=== PATIENT | male | born 1975 | race Caucasian/White ===

== ENCOUNTER 2022-01-15 20:57 | Emergency (ER) | payer OTHER, SELFPAY ==
[2022-01-15 21:40] VITALS: BP 164/98; PULSE 113; RESP 22; TEMP 36.8; O2SAT 98
[2022-01-15 22:39] LABS: Basophils Absolute Auto 0.1 K/mm3 (0.0-0.1); Eosinophils Absolute Auto 0.2 K/mm3 (0-0.3); Eosinophils Percent Auto 3.4 % (0-4.4); Hemoglobin 14.5 g/dL (14.0-18.0); Immature Granulocyte Percent A 1.4 % (0-0.5); Lymphocytes Absolute Auto 1.36 K/mm3 (0.9-3.2); Lymphocytes Percent Auto 19.3 % (18.3-44.2); Mean Corpuscular HGB Conc 33.7 g/dl (32-36); Mean Corpuscular Hemoglobin 31.4 pg (26-34); Mean Corpuscular Volume 93.1 fl (80-100); Mean Platelet Volume 9.7 fl (7.4-10.4); Monocytes Absolute Auto 0.7 K/mm3 (0.1-0.6); Monocytes Percent Auto 9.2 % (2.6-8.5); Neutrophils Absolute Auto 4.6 K/mm3 (1.3-6.7); Neutrophils Percent Auto 65.7 % (45.5-73.1); Platelet Count Result 274 k/mm3 (150-375); Red Blood Count 4.62 M/mm3 (4.6-6.20); Red Cell Distribution Width 14.1 % (11.5-14.5); White Blood Count 7.1 K/mm3 (4.5-10.0)
[2022-01-15 22:51] LABS: Ethanol < 10 mg/dL (<10)
[2022-01-15 22:55] LABS: Alanine Aminotransferase 53 U/L (6-50); Alkaline Phosphatase 106 U/L (38-126); Anion Gap 12 mmol/L (8-16); Aspartate Amino Transferase 35 U/L (17-59); Bilirubin,Total 0.7 mg/dL (0.2-1.3); Blood Urea Nitrogen 12 mg/dL (9-20); Calcium 9.1 mg/dL (8.4-10.2); Carbon Dioxide 23 mmol/L (22-30); Chloride 101 mmol/L (98-107); Estimated CRCL calculation 116 ml/min; Estimated Glomerular Filt Rate > 60; Glucose 104 mg/dL (65-110); Lipase 84 U/L (23-300); Sodium 136 mmol/L (137-145)
[2022-01-16 00:25] VITALS: BP 150/114; PULSE 125; RESP 17; TEMP 36.2; O2SAT 97
--- NOTE | 2022-01-16 00:49 | ED.ALCOHOL ---
HPI - Alcohol General Chief Complaint: Alcohol Stated Complaint: etoh, vomiting Time Seen by Provider: 01/16/22 00:23 History of Present Illness HPI narrative: 46-year-old male presents the emergency room for evaluation of nausea shaking and a headache. Patient states that he is a heavy alcohol user, frequently drinks at least 1 pint of hard spirits day for the last 10 days. Patient states that last night and into this Sunday morning he drank over 1/5 of hard alcohol. States his last drink was probably around noon today. Denies any abdominal pain or diarrhea. States that he had multiple episodes of nonbloody nonbilious vomiting. Denies any history of delirium tremens seizure-like activity. Related Data Allergies Allergy/AdvReac Type Severity Reaction Status Date / Time No Known Allergies Allergy Verified 01/15/22 21:46 Review of Systems Review of Systems: CONSTITUTIONAL: Denies fever, chills, or sweats. EYES: Denies visual changes, redness, or discharge. ENT: Denies rhinorrhea, congestion, sore throat, or otalgia. CARDIOVASCULAR: Denies chest pain, palpitations, or edema. RESPIRATORY: Denies cough or dyspnea. GASTROINTESTINAL: Reports nausea and vomiting GENITOURINARY: Denies dysuria or hematuria. SKIN: Denies rash or itching. MUSCULOSKELETAL: Denies back pain, joint pain, or myalgia. NEUROLOGIC: Denies headache, numbness, dizziness, or weakness. PSYCHIATRIC: Denies anxiety or depression. Exam Narrative: GENERAL: Well-appearing, well-nourished, no physical limitations, and in no acute distress. HEAD: Normocephalic, atraumatic. EYES: Conjunctivae normal, PERRLA and EOMI. CHEST: Clear to auscultation. No respiratory distress. No wheezes rales or rhonchi. No tenderness. HEART: Regular rate and rhythm. No murmur heard. Normal peripheral pulses. ABDOMEN: Soft, nontender, obese, normal active bowel sounds. EXTREMITIES: Normal range of motion. No edema. No clubbing or cyanosis SKIN: Warm, dry, no rash. No noted wounds NEURO: No focal deficits. Alert and oriented x3. MAEW. CN's II-XI intact bilaterally, normal gait PSYCH: Cooperative. Normal mood and affect. Course Vital Signs Vital signs: Vital Signs Temperature 36.8 C 01/15/22 21:40 Pulse Rate 113 H 01/15/22 21:40 Respiratory Rate 22 H 01/15/22 21:40 Blood Pressure 164/98 H 01/15/22 21:40 Pulse Oximetry 98 01/15/22 21:40 Oxygen Delivery Room Air 01/15/22 21:40 Temperature 36.2 C L 01/16/22 00:25 Pulse Rate 125 H 01/16/22 00:25 Respiratory Rate 17 01/16/22 00:25 Blood Pressure 150/114 H 01/16/22 00:25 Pulse Oximetry 97 01/16/22 00:25 Oxygen Delivery Room Air 01/15/22 21:40 MDM - Alcohol Lab Data Result diagrams: 01/15/22 22:34 01/15/22 22:34 Labs: Lab Results 01/15/22 01/15/22 01/15/22 Range/Units 22:34 22:34 22:34 WBC 7.1 (4.5-10.0) K/mm3 RBC 4.62 (4.6-6.20) M/mm3 Hgb 14.5 (14.0-18.0) g/dL Hct 43.0 (42.0-52.0) % MCV 93.1 (80-100) fl MCH 31.4 (26-34) pg MCHC 33.7 (32-36) g/dl RDW 14.1 (11.5-14.5) % Plt Count 274 (150-375) k/mm3 MPV 9.7 (7.4-10.4) fl Immature Gran % (Auto) 1.4 H (0-0.5) % Neut % (Auto) 65.7 (45.5-73.1) % Lymph % (Auto) 19.3 (18.3-44.2) % [place] % (Auto) 9.2 H (2.6-8.5) % Eos % (Auto) 3.4 (0-4.4) % Baso % (Auto) 1.0 (0.2-1.2) % Lymph # (Auto) 1.36 (0.9-3.2) K/mm3 [place] # (Auto) 0.7 H (0.1-0.6) K/mm3 Eos # (Auto) 0.2 (0-0.3) K/mm3 Baso # (Auto) 0.1 (0.0-0.1) K/mm3 Abs Immat Gran (auto) 0.10 H (0.00-0.031) K/mm3 Absolute Neuts (auto) 4.6 (1.3-6.7) K/mm3 Absolute Nucleated RBC 0.0 (0.0-0.012) K/mm3 Nucleated RBC % 0.0 (0.0-0.2) % Sodium 136 L (137-145) mmol/L Potassium 4.0 (3.4-5.0) mmol/L Chloride 101 (98-107) mmol/L Carbon Dioxide 23 (22-30) mmol/L Anion Gap 12 (8-16) mmol/L BUN 12 (9-20) mg/dL Creatinine 0.90 (0.7
[2022-01-16] MEDS: SODIUM CHLORIDE 0.9% IV 1,000 ML 999 ML IV CONT (01:27)
[2022-01-16 01:29] LABS: Appearance Urine Clear (Clear); Bilirubin Urine Negative (Negative); Color Urine Yellow (Yellow); Glucose Urine UA Negative (Negative); Ketones Urine Negative (Negative); Leukocyte Esterase Ur Negative LEU/UL (Negative); Nitrate Urine Negative (Negative); Protein Urine 1+ mg/dL (Negative); Specific Grav Ur 1.025 (1.001-1.035); Urobilinogen Urine 0.2 mg/dL (<2.0)
[2022-01-16] MEDS: ONDANSETRON INJ 4 MG/2 ML VIAL IV PUSH (01:29)
[2022-01-16 01:30] LABS: Add Urine Microscopic? YES; Blood Urine Trace-Intact (Negative)
[2022-01-16] MEDS: chlordiazePOXIDE (*CRX) 10 MG CAPSULE PO (01:30)
[2022-01-16] MEDS: THIAMINE HCL 200 MG/2 ML VIAL 100 MG IV PUSH (01:33)
[2022-01-16 01:34] LABS: Bacteria Urine Trace /hpf; Mucus Urine Rare /lpf; Squamous Epithelial Cell Urine Rare /hpf (Few); WBC Urine 0-3 /hpf
[2022-01-16 02:55] VITALS: BP 137/89; PULSE 103; RESP 18; O2SAT 100
== END 2022-01-16 02:57 | disposition home or self-care (01) ==
PROVIDERS: Emergency Medicine; Emergency Provider Nurse Practitioner Family
DX: F10.239 Alcohol dependence with withdrawal, unspecified (principal); Y90.0 Blood alcohol level of less than 20 mg/100 ml
CPT/HCPCS: 36415; 80053; 80307; 81001; 83690; 85025; 96361; 96365; 96375; 99284; A9270; J0131; J2405; J3411; J7030

== ENCOUNTER 2022-02-16 04:58 | Observation (INO) | payer OTHER, SELFPAY ==
[2022-02-16] VITALS (30 sets, daily range): BP systolic 133–204; BP diastolic 11–170; PULSE 56–109; RESP 14–30; TEMP 36.5–37.3; O2SAT 95–99; BMI 37.1
--- NOTE | 2022-02-16 05:21 | ECG_ITS ---
Measurements Intervals [place] Rate: 97 P: 67 MA: 168 QRS: 29 QRSD: 109 T: 41 QT: 359 QTc: 456 Interpretive Statements SINUS RHYTHM DELAYED PRECORDIAL R/S TRANSITION BASELINE ARTIFACT- I, II, III, AVR, AVL, AVF BORDERLINE ECG NO PREVIOUS ECG AVAILABLE FOR COMPARISON Electronically Signed On 02-16-2022 8:09:42 CDT by Iam Akbar D.O.
--- NOTE | 2022-02-16 05:23 | ED.ALCOHOL ---
HPI - Alcohol General Chief Complaint: Alcohol Stated Complaint: Alcohol Withdraw Time Seen by Provider: 02/16/22 05:03 History of Present Illness HPI narrative: This is a 46-year-old male with past medical history of alcohol abuse and alcohol withdrawal, who presents to the emergency department complaining of headaches, tremors and feelings of alcohol withdrawal. He states his last drink was approximately the afternoon of February 15. He describes his headache as pressure-like, diffuse, without loss of vision, weakness or numbness. He states he has been admitted for alcohol withdrawals in the past but not to ICU nor has he had seizures. Related Data Allergies Allergy/AdvReac Type Severity Reaction Status Date / Time No Known Allergies Allergy Verified 01/15/22 21:46 Review of Systems Review of Systems: CONSTITUTIONAL: fever, chills, or sweats. EYES: Denies visual changes, redness, or discharge. ENT: Denies rhinorrhea, congestion, sore throat, or otalgia. CARDIOVASCULAR: palpitations Denies chest pain or edema. RESPIRATORY: Denies cough or dyspnea. GASTROINTESTINAL: nausea Denies abdominal pain, vomiting, or diarrhea. GENITOURINARY: Denies dysuria or hematuria. SKIN: Denies rash or itching. MUSCULOSKELETAL: Denies back pain, joint pain, or myalgia. NEUROLOGIC: headache Denies numbness, dizziness, or weakness. PSYCHIATRIC: anxiety Denies depression. Exam Narrative: GENERAL: Well-developed, well-nourished, appears anxious, diaphoretic and uncomfortable HEAD: Normocephalic, atraumatic. EYES: PERRLA and EOMI. ENT: Nares clear, no rhinorrhea or epistaxis. Mucous membranes moist. Oropharynx without tonsillar hypertrophy exudate or other lesions. NECK: Supple. No adenopathy or masses. No carotid bruits or JVD CHEST: Clear to auscultation. No respiratory distress. No wheezes rales or rhonchi HEART: Tachycardic with regular rhythm. No murmur heard. Normal peripheral pulses. ABDOMEN: Soft, nontender, nondistended, normal active bowel sounds. EXTREMITIES: Normal range of motion. No edema. SKIN: Warm, dry, no rash. NEURO: Tremulous, strength 5/5 in all extremities, sensation intact bilaterally, no noted ataxia, no focal deficits. Alert and oriented x3. PSYCH: Normal mood and affect. Course Course Emergency Course: 05:27 - Nursing staff notes patient's initial CIWA was 25. Will treat with IV dose of phenobarb and plan for admission. 05:50 - CBC unremarkable, chemistries demonstrate gap of 19, I suspect alcoholic ketoacidosis. Ethanol of 22. Reassessed patient he states he feels improved after IV dose of phenobarbital. ECG not concerning for QT prolongation. 07:17 - Repeat CIWA 5. Patient discussed with hospitalist, Dr. Price who accepts admission. Vital Signs Vital signs: Vital Signs Temperature 98.6 F 02/16/22 05:03 Pulse Rate 109 H 02/16/22 05:03 Respiratory Rate 30 H 02/16/22 05:03 Pulse Oximetry 98 02/16/22 05:03 Oxygen Delivery Room Air 02/16/22 05:03 Temperature 98.6 F 02/16/22 05:03 Pulse Rate 97 02/16/22 06:31 Respiratory Rate 18 02/16/22 06:31 Blood Pressure 154/105 H 02/16/22 06:31 Pulse Oximetry 96 02/16/22 06:31 Oxygen Delivery Room Air 02/16/22 05:03 MDM - Alcohol MDM Narrative Medical decision making narrative: Plan: Labs, IV phenobarb, CIWA protocol, thiamine, folate, reassess Differential Diagnosis Differential diagnosis: Likely alcohol withdrawal syndrome and other (Metabolic abnormality, other) Lab Data Result diagrams: 02/16/22 05:25 02/16/22 05:25 Labs: Lab Results 02/16/22 02/16/22 02/16/22 Range/Units 05:25 05:25 05:25 WBC 7.7 (4.5-10.0) K/mm3 RBC 5.06 (4.6-6.20) M/mm3 Hgb 16.0 (14.0-18.0) g/dL Hct 46.4 (42.0-52.0) % MCV 91.7 (80-100) fl MCH 31.6 (26-34) pg MCHC 34.5 (32-36) g/dl RDW 12.8 (11.5-14.5) % Plt Count 252 (150-375) k/mm3 MPV 9.6 (7.4-10.4) fl Immature Gr
[2022-02-16] MEDS: PROCHLORPERAZINE EDISYLATE 10 MG/2 ML VIAL IV PUSH (05:29)
[2022-02-16 05:30] LABS: Basophils Percent Auto 0.5 % (0.2-1.2); Eosinophils Absolute Auto 0.2 K/mm3 (0-0.3); Eosinophils Percent Auto 2.1 % (0-4.4); Hematocrit 46.4 % (42.0-52.0); Immature Granulocyte Absolute 0.03 K/mm3 (0.00-0.031); Immature Granulocyte Percent A 0.4 % (0-0.5); Lymphocytes Absolute Auto 1.62 K/mm3 (0.9-3.2); Lymphocytes Percent Auto 21.1 % (18.3-44.2); Mean Corpuscular HGB Conc 34.5 g/dl (32-36); Mean Corpuscular Hemoglobin 31.6 pg (26-34); Mean Corpuscular Volume 91.7 fl (80-100); Mean Platelet Volume 9.6 fl (7.4-10.4); Monocytes Absolute Auto 0.6 K/mm3 (0.1-0.6); Monocytes Percent Auto 8.3 % (2.6-8.5); Neutrophils Absolute Auto 5.2 K/mm3 (1.3-6.7); Neutrophils Percent Auto 67.6 % (45.5-73.1); Platelet Count Result 252 k/mm3 (150-375); Red Blood Count 5.06 M/mm3 (4.6-6.20); Red Cell Distribution Width 12.8 % (11.5-14.5); White Blood Count 7.7 K/mm3 (4.5-10.0)
[2022-02-16] MEDS: PHENobarbitaL sodium (*CRX) 130 MG/ML VIAL 250 MG IV PUSH (05:33)
[2022-02-16] MEDS: SODIUM CHLORIDE 0.9% IV 1,000 ML 999 ML IV CONT (05:33)
[2022-02-16 05:40] LABS: Ethanol 22 mg/dL (<10)
[2022-02-16 05:41] LABS: Alanine Aminotransferase 65 U/L (6-50); Albumin Level 5.1 g/dL (3.5-5.1); Alkaline Phosphatase 110 U/L (38-126); Anion Gap 19 mmol/L (8-16); Aspartate Amino Transferase 46 U/L (17-59); Bilirubin,Total 0.9 mg/dL (0.2-1.3); Blood Urea Nitrogen 18 mg/dL (9-20); Calcium 9.8 mg/dL (8.4-10.2); Carbon Dioxide 18 mmol/L (22-30); Chloride 101 mmol/L (98-107); Estimated CRCL calculation 96 ml/min; Estimated Glomerular Filt Rate > 60; Glucose 98 mg/dL (65-110); Potassium 3.8 mmol/L (3.4-5.0); Sodium 138 mmol/L (137-145)
[2022-02-16] MEDS: FOLIC ACID 1 MG TABLET PO (06:32)
[2022-02-16 06:47] LABS: Folic Acid 4.4 ng/mL (2.76->20)
--- NOTE | 2022-02-16 08:36 | PC.NURSE ---
This patient, Migueltio Rodriguez, was admitted to IMU Room 204-01. Patient/family oriented to hospital policies and general routines including ID bracelet, bed and alarms, visiting hours, pain management, procedures, bathroom and other care routines, personal items, smoking policy, room service/diet, and visiting hours. Information on how to activate the Rapid Response Team has been discussed. Patient/Family are encouraged to report perceived risks to care and to ask questions if they do not understand what they are told or what they should do.
[2022-02-16] MEDS: THIAMINE HCL 200 MG/2 ML VIAL 100 MG IV PUSH (09:34)
[2022-02-16] MEDS: carvediloL 3.125 MG TABLET PO ×2 (09:51→20:39)
[2022-02-16] MEDS: FAMOTIDINE 20 MG TABLET PO ×2 (09:52→18:31)
[2022-02-16] MEDS: DICYCLOMINE HCL 10 MG CAPSULE 20 MG PO (09:52)
[2022-02-16] MEDS: amLODIPine BESYLATE 5 MG TABLET 10 MG PO (09:52)
[2022-02-16] MEDS: CITALOPRAM HYDROBROMIDE 20 MG TABLET PO (09:52)
[2022-02-16] MEDS: LOSARTAN POTASSIUM 100 MG TABLET PO (09:52)
[2022-02-16 11:50] LABS: Glucose Point of Care 180 mg/dl (65-105)
--- NOTE | 2022-02-16 13:02 | PM.IMHP ---
H&P: HPI History of Present Illness Date/Time: 02/16/22 13:02 Chief Complaint: Alcohol withdrawal Narrative: Date of service: 02/16/22 Miguelito Rodriguez is a 46 year old male with a history of alcohol abuse, hypertension, hyperlipidemia, and borderline diabetes who presented to the emergency department on 02/16/22 with complaints of alcohol withdrawal symptoms. He endorsed shaking, chills, and persistent vomiting. He drank one fifth of gin the night prior, estimating he finished it around 12:00 am and went to bed. He reports this is more than he typically drinks and he wondered if maybe he drank too much and had alcohol poisoning. He states he usually drinks 1 pint of gin daily about 4-5 times per week. He can often go a day without drinking and not have symptoms. He denies any trigger or stressor which caused him to drink more than his typical amount last night. He reports he has tried to quit drinking alcohol in the past, most recently about 1 month ago he was sober for 10 days. He went to [place] [facility] for management of withdrawal symptoms during that time but was never admitted. He states he wishes to quit drinking and the thought of drinking any alcohol at this time makes him feel unwell. He states he would like to obtain some resources for alcohol cessation during this admission and is even open to inpatient vs outpatient rehab options. The patient states at this time he has a mild tremor, mild light sensitivity, sweats, and reports last night having vivid dreams. He denies any visual or auditory disturbances. He felt mildly tachycardic but this has resolved. He has not had any further episodes of emesis since admission. Denies agitation, restlessness, anxiety. No SOB, cough, CP. In the ED, he was mildly tachycardic and tachypneic with additional vital signs stable, CIWA was 25 and he received phenobarbital with improvement. On reassessment his CIWA score was 5. CBC was unremarkable, CMP demonstrated mild anion gap elevation and minimal elevation of AST, alcohol level was 22. He is being admitted for observation to the hospitalist service. Supervising physician for this history and physical is Dr. Nestor Harman. Review of Systems Review of Systems: All systems reviewed & are unremarkable except as noted in HPI and below PMFSH Past Medical History Medical History (Updated 02/16/22 @ 13:33 by Marjorie Burkett PA-C) Alcohol abuse Borderline diabetic Hyperlipidemia Hypertension Surgical History Surgical History (Updated 02/16/22 @ 13:33 by Marjorie Burkett PA-C) History of surgery on lower extremity Unspecified plastic surgery following right leg injury at age 10 Family History Family History (Updated 02/16/22 @ 13:33 by Marjorie Burkett PA-C) Mother Hyperlipemia Heart attack Hypertension Diabetes mellitus Father Hypertension COPD (chronic obstructive pulmonary disease) Social History Social History (Updated 02/16/22 @ 13:37 by Marjorie Burkett PA-C) Social History: Lives at home, independent with ADLs Has a 13 year old daughter. Paid admitting officer caregiver through [facility] for disabled mina. PCP: Rodney Perez NP POA: Le Rodriguez (mother) Code: Full Smoking packs per day: 1 Smoking cigarettes per day: 20.0 Years smoked: 5 Smoking pack-years: 5.00 Smoking status: Former smoker Alcohol intake: current Alcohol use details: Drinks 1 pint of gin/day (4-5x/week) Substance use: current Substance use type: marijuana Spiritual care concerns: No Meds Home Medications and Allergies Home Medications Medication Instructions Recorded Confirmed Type amlodipine 10 mg tablet 10 mg PO DAILY 02/16/22 02/16/22 History carvedilol 3.125 mg tablet 3.125 mg PO BID 02/16/22 02/16/22 History citalopram 20 mg tablet 20 mg PO DAILY 02/16/22 02/16/22 History dicyclomine 10 mg capsule 20 mg PO BID 02/16/22 02/16/22 History famotidine 20 mg tablet 20 mg PO BID 02/16/22 02/16/22 History hydroxyz
[2022-02-16] MEDS: hydrALAZINE HCL 20 MG/ML VIAL 10 MG IV PUSH (13:56)
[2022-02-16] MEDS: chlordiazePOXIDE (*CRX) 25 MG CAPSULE PO ×2 (13:57→18:31)
[2022-02-16 14:37] LABS: Anion Gap 11 mmol/L (8-16); Blood Urea Nitrogen 18 mg/dL (9-20); Calcium 9.4 mg/dL (8.4-10.2); Carbon Dioxide 23 mmol/L (22-30); Chloride 101 mmol/L (98-107); Estimated CRCL calculation 116 ml/min; Estimated Glomerular Filt Rate > 60; Glucose 131 mg/dL (65-110); Potassium 3.5 mmol/L (3.4-5.0); Sodium 135 mmol/L (137-145)
[2022-02-16 18:10] LABS: Glucose Point of Care 168 mg/dl (65-105)
[2022-02-16] MEDS: ACETAMINOPHEN 325 MG TABLET 650 MG PO (19:57)
[2022-02-16] MEDS: hydrOXYzine HCL 25 MG TABLET 100 MG PO (20:39)
[2022-02-16 21:39] LABS: Glucose Point of Care 140 mg/dl (65-105)
[2022-02-17] VITALS: PULSE 68
[2022-02-17] MEDS: chlordiazePOXIDE (*CRX) 25 MG CAPSULE PO ×2 (00:37→06:35)
[2022-02-17] MEDS: LORazepam INJ (*CRX) 2 MG/ML VIAL 1 MG IV PUSH (00:38)
[2022-02-17 02:00] VITALS: PULSE 71
[2022-02-17 04:00] VITALS: BP 140/85; PULSE 68; PULSE 69; RESP 18; TEMP 37.3; O2SAT 97
[2022-02-17 04:49] LABS: Glucose Point of Care 133 mg/dl (65-105)
[2022-02-17 05:00] LABS: Basophils Percent Auto 0.6 % (0.2-1.2); Eosinophils Absolute Auto 0.2 K/mm3 (0-0.3); Eosinophils Percent Auto 4.2 % (0-4.4); Hematocrit 41.4 % (42.0-52.0); Hemoglobin 14.5 g/dL (14.0-18.0); Immature Granulocyte Absolute 0.03 K/mm3 (0.00-0.031); Immature Granulocyte Percent A 0.6 % (0-0.5); Lymphocytes Absolute Auto 1.31 K/mm3 (0.9-3.2); Lymphocytes Percent Auto 24.8 % (18.3-44.2); Mean Corpuscular Hemoglobin 31.7 pg (26-34); Mean Corpuscular Volume 90.4 fl (80-100); Mean Platelet Volume 9.8 fl (7.4-10.4); Monocytes Absolute Auto 0.5 K/mm3 (0.1-0.6); Monocytes Percent Auto 9.3 % (2.6-8.5); Neutrophils Absolute Auto 3.2 K/mm3 (1.3-6.7); Neutrophils Percent Auto 60.5 % (45.5-73.1); Platelet Count Result 224 k/mm3 (150-375); Red Blood Count 4.58 M/mm3 (4.6-6.20); Red Cell Distribution Width 12.5 % (11.5-14.5); White Blood Count 5.3 K/mm3 (4.5-10.0)
[2022-02-17 05:14] LABS: Anion Gap 14 mmol/L (8-16); Blood Urea Nitrogen 17 mg/dL (9-20); Calcium 8.6 mg/dL (8.4-10.2); Carbon Dioxide 27 mmol/L (22-30); Chloride 99 mmol/L (98-107); Estimated CRCL calculation 104 ml/min; Estimated Glomerular Filt Rate > 60; Glucose 111 mg/dL (65-110); Potassium 3.3 mmol/L (3.4-5.0); Sodium 140 mmol/L (137-145)
[2022-02-17 06:00] VITALS: PULSE 78
[2022-02-17 07:42] LABS: Magnesium 1.9 mg/dL (1.6-2.3)
[2022-02-17 07:58] VITALS: BP 139/82; PULSE 73; RESP 16; TEMP 36.7; O2SAT 98
[2022-02-17 08:00] VITALS: PULSE 79
[2022-02-17] MEDS: POTASSIUM CHLORIDE 20 MEQ TABLET 40 MEQ PO (08:06)
[2022-02-17] MEDS: carvediloL 3.125 MG TABLET PO (08:07)
[2022-02-17] MEDS: THIAMINE HCL 100 MG TABLET PO (08:07)
[2022-02-17] MEDS: CITALOPRAM HYDROBROMIDE 20 MG TABLET PO (08:07)
[2022-02-17] MEDS: FAMOTIDINE 20 MG TABLET PO (08:08)
[2022-02-17] MEDS: FOLIC ACID 1 MG TABLET PO (08:08)
[2022-02-17] MEDS: amLODIPine BESYLATE 5 MG TABLET 10 MG PO (08:08)
[2022-02-17] MEDS: LOSARTAN POTASSIUM 100 MG TABLET PO (08:08)
--- NOTE | 2022-02-17 09:23 | PM.DS ---
DS: Admitting Diagnosis Discharge Date 02/17/2022 0923 Admitting Diagnosis Acute alcohol withdrawal Alcohol abuse disorder Hypertension DS: Discharge Diagnosis Discharge Diagnosis (1) Alcohol withdrawal syndrome: Qualifiers: Complication of substance-induced condition: uncomplicated Qualified Code(s): F10.930 - Alcohol use, unspecified with withdrawal, uncomplicated Code(s): F10.939 - Alcohol use, unspecified with withdrawal, unspecified Status: Acute (2) Alcohol abuse: Code(s): F10.10 - Alcohol abuse, uncomplicated Status: Acute (3) Hypertension: Qualifiers: Hypertension type: primary hypertension Qualified Code(s): I10 - Essential (primary) hypertension Code(s): I10 - Essential (primary) hypertension Status: Acute DS: Summary Hospital Course Reason for hospitalization: Tremors Hospital Course: Miguelito Rodriguez is a 46 year old male with alcohol abuse disorder, hypertension, hyperlipidemia, and borderline diabetes who presented to the emergency department on 02/16/22 with complaints of tremors. He endorsed shaking, chills, and persistent vomiting. He drank one fifth of gin the night prior, estimating he finished it around 12:00 am and went to bed. He reports this is more than he typically drinks and he wondered if maybe he drank too much and had alcohol poisoning. He states he usually drinks 1 pint of gin daily about 4-5 times per week. He can often go a day without drinking and not have symptoms. He denies any triggers or stressors which caused him to drink more than his typical amount last night. He reports he has tried to quit drinking alcohol in the past, most recently about 1 month ago he was sober for 10 days. He went to [place] [facility] for management of withdrawal symptoms during that time but was never admitted. He states he wishes to quit drinking and the thought of drinking any alcohol at this time makes him feel unwell. He reported mild tremor, mild light sensitivity, sweats, and vivid dreams the night before.? He denies any visual or auditory disturbances. He was mildly tachycardic but this has resolved. He has not had any further episodes of emesis since admission. Denies agitation, restlessness, anxiety. No SOB, cough, CP. In the ED, he was mildly tachycardic and tachypneic with additional vital signs stable, CIWA was 25 and he received phenobarbital with improvement. On reassessment his CIWA score was 5. CBC was unremarkable, CMP demonstrated mild anion gap elevation and minimal elevation of AST, alcohol level was 22. He was admitted for observation to the hospitalist service. He was treated with Librium Q6 hours and PRN Lorazepam. CIWA was monitored per protocol. He was monitored on telemetry without ectopy. IV thiamine and PO folic acid were started. Home antihypertensives were continued. Care coordination was consulted for alcohol abuse resources. The patient's CIWA score was <8. He reported a desire to quit drinking. He was discharged home in stable condition with PRN gabapentin for withdrawal symptoms. He was counseled on quitting drinking and when to seek further care. Status at Discharge Cognitive/behavioral status at discharge: Alert and oriented x4, pleasant Functional status at discharge: independent ambulation Overall status at discharge: patient is back to baseline Time Spent with Patient Time attestation: Total time spent providing and/or coordinating discharge services: Time spent: Greater than 30 minutes Exam Narrative: General: well-nourished, no acute distress, lying in bed. Neuro: awake, alert and oriented x4, speech clear, no focal neuro deficits noted, mild tremor with palpation both hands HEENT:? normocephalic, pupils equal and round, sclerae anicteric, mucous membranes moist Respiratory: clear to auscultation bilaterally, nonlabored breathing Cardio: regular rate, regular rhythm with S1-S2 Abdomen:? nondistended, normoactive lopez
[2022-02-17] MEDS: ACETAMINOPHEN 325 MG TABLET 650 MG PO (09:36)
== END 2022-02-17 10:30 | disposition home or self-care (01) ==
LOC: ANHED 07:18 → ANHIMU 15:48
PROVIDERS: Physician Assistant; Admitting Provider Chiropractor; Emergency Provider Preventive Medicine Aerospace Medicine; PCP Nurse Practitioner Family; Visit Provider Nurse Practitioner Family
DX: F10.130 Alcohol abuse with withdrawal, uncomplicated (principal); R00.0 Tachycardia, unspecified; R51.9 Headache, unspecified; I10 Essential (primary) hypertension; E78.5 Hyperlipidemia, unspecified; R73.03 Prediabetes
CPT/HCPCS: 36415; 80048; 80053; 80307; 82746; 82948; 83735; 85025; 93005; 96361; 96374; 96375; 99285; A9270; G0378; G0379; J0360; J0780; J2060; J2560; J3411; J7030

== ENCOUNTER 2022-03-26 13:13 | Observation (INO) | payer OTHER, SELFPAY ==
[2022-03-26] VITALS (13 sets, daily range): BP systolic 117–179; BP diastolic 49–113; PULSE 79–133; RESP 12–28; TEMP 36.2–36.3; O2SAT 94–99; BMI 36.9
--- NOTE | 2022-03-26 13:35 | ED.ALCOHOL ---
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 Patient is alcoholic, drinks daily for the last 10 years, lately patient been drinking more than normal. This morning was not able to drink and was not able to keep anything down including his blood pressure medicine.. Patient denies any fever, chills, or abdominal pain Related Data Home Medications Medication Instructions Recorded Confirmed amlodipine 10 mg tablet 10 mg PO DAILY 02/16/22 02/16/22 carvedilol 3.125 mg tablet 3.125 mg PO BID 02/16/22 02/16/22 citalopram 20 mg tablet 20 mg PO DAILY 02/16/22 02/16/22 dicyclomine 10 mg capsule 20 mg PO BID 02/16/22 02/16/22 famotidine 20 mg tablet 20 mg PO BID 02/16/22 02/16/22 hydroxyzine HCl 100 mg PO HS 02/16/22 02/16/22 losartan 100 mg tablet 100 mg PO DAILY 02/16/22 02/16/22 ondansetron 4 mg disintegrating 4 mg PO Q8H PRN Nausea 02/16/22 02/16/22 tablet Allergies Allergy/AdvReac Type Severity Reaction Status Date / Time No Known Allergies Allergy Verified 01/15/22 21:46 Review of Systems Review of Systems: All systems reviewed & are unremarkable except as noted in HPI and below PMFSH Past Medical History Medical History Alcohol abuse Borderline diabetic Hyperlipidemia Hypertension Surgical History Surgical History History of surgery on lower extremity Unspecified plastic surgery following right leg injury at age 10 Family History Family History Mother Hyperlipemia Heart attack Hypertension Diabetes mellitus Father Hypertension COPD (chronic obstructive pulmonary disease) Social History Social History Social History: Lives at home, independent with ADLs Has a 13 year old daughter. 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 PCP: Rodney Perez NP POA: Le Rodriguez (mother) Code: Full Smoking packs per day: 1 Smoking cigarettes per day: 20.0 Years smoked: 5 Smoking pack-years: 5.00 Smoking status: Former smoker Alcohol intake: current Alcohol use details: Drinks 1 pint of gin/day (4-5x/week) Substance use: current Substance use type: marijuana Spiritual care concerns: No Exam Narrative: General appearance: Well-developed, well-nourished, restless, tremors, dry heaves, holding vomiting bag and hands Skin: Normal color Head: Normocephalic, nontraumatic Eyes: Clear conjunctiva ENT: Oropharynx normal, ears normal, nose normal Neck: Supple, nontender Chest and respiratory: Airway patent, no respiratory distress, no accessory muscle use Heart: Regular rate/rhythm Abdomen: Soft, nontender, no organomegaly, quiet bowel sounds Vascular: Normal peripheral pulses, normal capillary refill. Musculoskeletal: Normal range of motion, nontender back Neurologic: Alert and oriented ?3, [employer] is normal as tested, no gross motor deficit Course Course Emergency Course: Alcohol withdrawal secondary to intractable vomiting is my concern. Vomiting could be secondary to gastritis, viral infection Vital Signs Vital signs: Vital Signs Temperature 36.3 C L 03/26/22 13:14 Pulse Rate 133 H 03/26/22 13:14 Respiratory Rate 28 H 03/26/22 13:14 Blood Pressure 179/113 H 03/11
[2022-03-26 14:05] LABS: Basophils Absolute Auto 0.1 K/mm3 (0.0-0.1); Basophils Percent Auto 0.6 % (0.2-1.2); Eosinophils Percent Auto 0.4 % (0-4.4); Hemoglobin 15.5 g/dL (14.0-18.0); Lymphocytes Absolute Auto 1.29 K/mm3 (0.9-3.2); Lymphocytes Percent Auto 13.2 % (18.3-44.2); Mean Corpuscular HGB Conc 35.2 g/dl (32-36); Mean Corpuscular Hemoglobin 31.6 pg (26-34); Mean Corpuscular Volume 89.8 fl (80-100); Mean Platelet Volume 8.8 fl (7.4-10.4); Monocytes Absolute Auto 0.6 K/mm3 (0.1-0.6); Monocytes Percent Auto 5.7 % (2.6-8.5); Neutrophils Absolute Auto 7.7 K/mm3 (1.3-6.7); Neutrophils Percent Auto 79.1 % (45.5-73.1); Platelet Count Result 371 k/mm3 (150-375); Red Cell Distribution Width 12.9 % (11.5-14.5); White Blood Count 9.8 K/mm3 (4.5-10.0)
[2022-03-26] MEDS: LORazepam INJ (*CRX) 2 MG/ML VIAL 1 MG IV PUSH ×2 (14:15→15:12)
[2022-03-26 14:20] LABS: Ethanol < 10 mg/dL (<10)
[2022-03-26 14:23] LABS: Alanine Aminotransferase 72 U/L (6-50); Alkaline Phosphatase 111 U/L (38-126); Anion Gap 17 mmol/L (8-16); Aspartate Amino Transferase 47 U/L (17-59); Bilirubin,Total 0.8 mg/dL (0.2-1.3); Blood Urea Nitrogen 15 mg/dL (9-20); Calcium 9.2 mg/dL (8.4-10.2); Carbon Dioxide 17 mmol/L (22-30); Chloride 104 mmol/L (98-107); Estimated CRCL calculation 105 ml/min; Estimated Glomerular Filt Rate > 60; Glucose 95 mg/dL (65-110); Potassium 3.7 mmol/L (3.4-5.0); Sodium 138 mmol/L (137-145)
[2022-03-26] MEDS: THIAMINE HCL INJ 100 MG, FOLIC ACID INJ 1 MG, MULTIVITAMINS-12 INJ VIAL 1 5 ML, MULTIVI... 1000 MG IV CONT (14:32)
[2022-03-26] MEDS: ONDANSETRON INJ 4 MG/2 ML VIAL 8 MG IV PUSH (14:57)
[2022-03-26 15:20] LABS: Magnesium 1.9 mg/dL (1.6-2.3)
[2022-03-26 15:39] LABS: Prothrombin Time 12.7 Seconds (11.1-14.7)
--- NOTE | 2022-03-26 16:30 | PM.IMHP ---
H&P: HPI History of Present Illness Date/Time: 03/26/22 16:30 Chief Complaint: Tremors, nausea, vomiting. Narrative: This is a 46-year-old male with history of alcohol abuse and hypertension who presented to the ED via private vehicle from home for evaluation of tremors, nausea, and vomiting. He typically drinks a pint of rum most nights of the week however he will occasionally drink more on the weekends. This was one of those weekends and he drank a 5th of rum the last few nights. His last drink was at midnight and he felt fine when he went to bed. At about 930 this morning he awoke from sleep with severe nausea, sweats, and tremors. He had 1 episode of emesis and continued to have dry heaves. He attempted to take a drink to help with his symptoms though was unable to hold anything down. On arrival to the ED his blood pressure was 179/113, pulse 133, respiratory rate 28. He was given lorazepam 2 milligrams IV push x1 in addition to 4 milligrams of ondansetron and his symptoms have improved significantly. He is worried that he is going to continue to have withdrawal symptoms and he is supposed to start back to work tomorrow and as such he is being admitted overnight for close monitoring and detox. At the time have my evaluation he is feeling much better is though is a bit tremulous. He denies sweats, hallucinations, and significant anxiety at this time. No history of alcohol withdrawal seizures. Review of Systems Review of Systems: Twelve systems were reviewed. He has had a bit of a headache and sinus congestion which he attributes to seasonal allergies. No fever, chills, or sweats. No chest pain shortness a breath. No abdominal pain or epigastric pain. Nausea has significantly improved. He does suffer from GERD which is typically well controlled on his omeprazole. Except as documented, all other systems were reviewed and are negative. [facility] Past Medical History Medical History (Updated 03/26/22 @ 21:09 by Mellissa Addison PA-C) Alcohol abuse Borderline diabetic Eczema Gastroesophageal reflux disease Hyperlipidemia Hypertension Kidney stones Surgical History Surgical History (Updated 03/26/22 @ 21:09 by Mellissa Addison PA-C) History of appendectomy History of surgery on lower extremity Unspecified plastic surgery following right leg injury at age 10 Family History Family History Mother Hyperlipemia Heart attack Hypertension Diabetes mellitus Father Hypertension COPD (chronic obstructive pulmonary disease) Social History Social History (Updated 03/26/22 @ 21:10 by Mellissa Addison PA-C) Social History: Lives at home, independent with ADLs. Has a 13 year old daughter. 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 PCP: Rodney Perez NP POA: Le Rodriguez, mother. Code status: Full Code. Smoking packs per day: 1 Smoking cigarettes per day: 20.0 Years smoked: 5 Smoking pack-years: 5.00 Smoking status: Former smoker Alcohol intake: current Alcohol use details: Drinks 1 pint of gin or rum a day, up to a 5th on the weekends. Substance use: current Substance use type: marijuana Last use: 03/23/22 Spiritual care concerns: No Meds Home Medications and Allergies Home Medications Medication Instructions Recorded Confirmed Type amlodipine 10 mg tablet 10 mg PO DAILY 02/16/22 03/26/22 History citalopram 20 mg tablet 20 mg PO DAILY 02/16/22 03/26/22 History dicyclomine 10 mg capsule 20 mg PO BID 02/16/22 03/26/22 History famotidine 20 mg tablet 20 mg PO BID PRN Heartburn 02/16/22 03/26/22 History hydroxyzine HCl 50 mg PO HS 02/16/22 03/26/22 History losartan 100 mg tablet 100 mg PO DAILY 02/16/22 03/26/22 History ondansetron 4 mg disintegrating 4 mg PO Q8H PRN Nausea 02/16/22 03/26/22 History tablet gabapentin 100 mg capsule 100 mg PO TID PRN alcohol 02/17/22 03/26/22 Rx withdrawal #12 caps
[2022-03-26] MEDS: SODIUM CHLORIDE 0.9% IV 1,000 ML 150 ML IV CONT (17:50)
--- NOTE | 2022-03-26 18:03 | ADMGEN ---
This patient, Miguelito Rodriguez, was admitted to 3 [facility] Surg Room 322-01. Patient/family oriented to hospital policies and general routines including ID bracelet, bed and alarms, visiting hours, pain management, procedures, bathroom and other care routines, personal items, smoking policy, room service/diet, and visiting hours. Information on how to activate the Rapid Response Team has been discussed. Patient/Family are encouraged to report perceived risks to care and to ask questions if they do not understand what they are told or what they should do.
[2022-03-26] MEDS: LORazepam INJ (*CRX) 2 MG/ML VIAL IV PUSH (19:50)
[2022-03-26] MEDS: chlordiazePOXIDE (*CRX) 10 MG CAPSULE PO (22:33)
[2022-03-26] MEDS: hydrOXYzine HCL 25 MG TABLET 50 MG PO (22:33)
[2022-03-27] VITALS (11 sets, daily range): BP systolic 132–148; BP diastolic 84–93; PULSE 62–90; RESP 14–18; TEMP 36.4–37; O2SAT 94–98
[2022-03-27] MEDS: LORazepam INJ (*CRX) 2 MG/ML VIAL 1 MG IV PUSH ×2 (00:15→06:11)
[2022-03-27] MEDS: SODIUM CHLORIDE 0.9% IV 1,000 ML 150 ML IV CONT ×4 (00:18→22:29)
[2022-03-27] MEDS: chlordiazePOXIDE (*CRX) 10 MG CAPSULE PO (06:11)
[2022-03-27 06:39] LABS: Hematocrit 37.2 % (42.0-52.0); Mean Corpuscular HGB Conc 34.9 g/dl (32-36); Mean Corpuscular Hemoglobin 31.3 pg (26-34); Mean Corpuscular Volume 89.6 fl (80-100); Platelet Count Result 282 k/mm3 (150-375); Red Blood Count 4.15 M/mm3 (4.6-6.20); Red Cell Distribution Width 12.9 % (11.5-14.5); White Blood Count 6.2 K/mm3 (4.5-10.0)
[2022-03-27 06:56] LABS: Alanine Aminotransferase 48 U/L (6-50); Albumin Level 3.9 g/dL (3.5-5.1); Alkaline Phosphatase 84 U/L (38-126); Anion Gap 11 mmol/L (8-16); Aspartate Amino Transferase 30 U/L (17-59); Bilirubin,Total 0.9 mg/dL (0.2-1.3); Blood Urea Nitrogen 13 mg/dL (9-20); Calcium 8.1 mg/dL (8.4-10.2); Carbon Dioxide 23 mmol/L (22-30); Chloride 104 mmol/L (98-107); Estimated CRCL calculation 108 ml/min; Estimated Glomerular Filt Rate > 60; Glucose 115 mg/dL (65-110); Magnesium 2.1 mg/dL (1.6-2.3); Potassium 3.5 mmol/L (3.4-5.0); Sodium 138 mmol/L (137-145)
[2022-03-27] MEDS: PANTOPRAZOLE SODIUM IV 40 MG VIAL IV PUSH (08:46)
[2022-03-27] MEDS: FOLIC ACID 1 MG TABLET PO (08:47)
[2022-03-27] MEDS: DICYCLOMINE HCL 10 MG CAPSULE 20 MG PO ×2 (08:47→16:49)
[2022-03-27] MEDS: CITALOPRAM HYDROBROMIDE 20 MG TABLET PO (08:47)
[2022-03-27] MEDS: amLODIPine BESYLATE 5 MG TABLET 10 MG PO (08:47)
[2022-03-27] MEDS: LOSARTAN POTASSIUM 100 MG TABLET PO (08:47)
[2022-03-27] MEDS: THIAMINE HCL 100 MG TABLET PO (08:47)
--- NOTE | 2022-03-27 14:28 | PM.IMPN ---
Progress Note: A&P Assessment and Plan (1) Alcohol withdrawal syndrome: Code(s): F10.939 - Alcohol use, unspecified with withdrawal, unspecified Status: Acute Assessment and Plan: CIWA score was 9-12 today, will increase librium and be more aggressive with prn ativan, discussed with nursing (2) Alcohol abuse: Code(s): F10.10 - Alcohol abuse, uncomplicated Status: Acute Assessment and Plan: continue MVI + thiamine (3) Hypertension: Qualifiers: Hypertension type: primary hypertension Qualified Code(s): I10 - Essential (primary) hypertension Code(s): I10 - Essential (primary) hypertension Status: Acute Assessment and Plan: will add clonidine (4) Gastroesophageal reflux disease: Code(s): K21.9 - Gastro-esophageal reflux disease without esophagitis Status: Acute Assessment and Plan: continue famotidine prn, PPI daily (5) Anxiety: Code(s): F41.9 - Anxiety disorder, unspecified Status: Acute Assessment and Plan: celexa Plan DVT prophylaxis with SCDs GI prophylaxis with PPI Code status full code Subjective Date/time seen: 03/27/22 14:28 Interval history: No overnight events noted. No chest pain or shortness of breath. No nausea, vomiting or diarrhea. No fevers or chills. He is c/o tremors, CARBONE and some nausea, much improved from yesterday. Review of Systems Review of Systems: 12 point review of systems was assessed and was negative except as noted in the HPI Exam Narrative: General: No acute distress, alert and oriented per baseline, somewhat tremulous HEENT: Atraumatic, normocephalic, mucous membranes moist CV: Regular rate and rhythm, S1, S2 Lungs: Clear to auscultation bilaterally, no rales or crackles noted, no wheezes, good air entry Abdomen: Soft, nontender, nondistended Extremities: Normal to inspection Skin: No rashes noted, no lesions or wounds seen Psych: Anxious, dysthymic Objective Data Vital Signs Vital Signs: Vital Signs - 24 hr 03/26/22 15:17 03/26/22 15:16 03/26/22 15:31 Temperature Pulse Rate 99 99 99 Pulse Rate [Left Radial] Respiratory Rate 18 15 12 Blood Pressure 132/94 H 132/94 H 152/91 H Pulse Oximetry 98 99 94 03/26/22 16:01 03/26/22 17:25 03/26/22 20:00 Temperature Pulse Rate 97 98 94 Pulse Rate [Left Radial] Respiratory Rate 18 18 Blood Pressure 135/90 149/49 H Pulse Oximetry 96 99 03/27/22 00:00 03/27/22 04:00 03/27/22 00:00 Temperature Pulse Rate 68 Pulse Rate [Left Radial] 72 71 Respiratory Rate Blood Pressure Pulse Oximetry 03/27/22 04:00 03/26/22 22:00 03/27/22 04:00 Temperature 97.1 F L 97.7 F Pulse Rate 71 79 73 Pulse Rate [Left Radial] Respiratory Rate 16 14 Blood Pressure 145/87 H 148/91 H Pulse Oximetry 94 96 03/27/22 08:36 03/27/22 08:37 03/27/22 08:00 Temperature 98.4 F 98.4 F Pulse Rate 89 89 82 Pulse Rate [Left Radial] Respiratory Rate 16 16 Blood Pressure 132/84 132/84 Pulse Oximetry 94 94 03/27/22 12:22 03/27/22 12:00 03/27/22 08:47 Temperature 98.6 F Pulse Rate 86 86 Pulse Rate [Left Radial] 90 Respiratory Rate 16 Blood Pressure 148/93 H Pulse Oximetry 97 03/27/22 12:00 Temperature Pulse Rate Pulse Rate [Left Radial] 86 Respiratory Rate Blood Pressure Pulse Oximetry Intake/Output Intake/Output: Intake & Output 03/24/22 03/25/22 03/26/22 03/27/22 23:59 23:59 23:59 23:59 Intake Total 1113.2 3080 Balance 1113.2 3080 Meds/Results Medications: Active Medications Generic Name Dose Route Start Last Admin Trade Name Freq PRN Reason Stop Dose Admin Amlodipine Besylate 10 mg 03/27/22 09:00 03/27/22 08:47 Amlodipine Besylate 5 Mg Tablet PO 10 mg DAILY GREY Administration Chlordiazepoxide HCl 10 mg 03/26/22 22:00 03/27/22 06:11 Chlordiazepoxide (*Crx) 10 Mg Capsule PO 10 mg Q8H GREY A
[2022-03-27] MEDS: LORazepam INJ (*CRX) 2 MG/ML VIAL IV PUSH ×2 (15:34→21:27)
[2022-03-27] MEDS: chlordiazePOXIDE (*CRX) 25 MG CAPSULE PO ×2 (15:34→23:00)
[2022-03-27] MEDS: cloNIDine HCL 0.1 MG TABLET PO ×2 (15:50→21:16)
[2022-03-27] MEDS: KETOROLAC 15 MG/ML VIAL (*BKC) IV PUSH (16:49)
[2022-03-27] MEDS: ACETAMINOPHEN 325 MG TABLET 650 MG PO (19:57)
[2022-03-27] MEDS: traZODone HCL 50 MG TABLET 100 MG PO (21:16)
[2022-03-27] MEDS: hydrOXYzine HCL 25 MG TABLET 50 MG PO (21:16)
[2022-03-28] VITALS (7 sets, daily range): BP systolic 120–148; BP diastolic 86–92; PULSE 59–80; RESP 14–18; TEMP 36.2–36.4; O2SAT 96–99
[2022-03-28] MEDS: SODIUM CHLORIDE 0.9% IV 1,000 ML 150 ML IV CONT (05:34)
[2022-03-28] MEDS: chlordiazePOXIDE (*CRX) 25 MG CAPSULE PO (06:52)
[2022-03-28] MEDS: ACETAMINOPHEN 325 MG TABLET 650 MG PO (06:57)
[2022-03-28] MEDS: CITALOPRAM HYDROBROMIDE 20 MG TABLET PO (08:09)
[2022-03-28] MEDS: LOSARTAN POTASSIUM 100 MG TABLET PO (08:09)
[2022-03-28] MEDS: amLODIPine BESYLATE 5 MG TABLET 10 MG PO (08:10)
[2022-03-28] MEDS: THIAMINE HCL 100 MG TABLET PO (08:11)
[2022-03-28] MEDS: FOLIC ACID 1 MG TABLET PO (08:11)
[2022-03-28] MEDS: DICYCLOMINE HCL 10 MG CAPSULE 20 MG PO (08:12)
[2022-03-28] MEDS: cloNIDine HCL 0.1 MG TABLET PO (08:25)
[2022-03-28] MEDS: PANTOPRAZOLE SODIUM IV 40 MG VIAL IV PUSH (08:25)
--- NOTE | 2022-03-28 13:33 | PM.DS ---
DS: Admitting Diagnosis Discharge Date March 28, 2022 Admitting Diagnosis Alcohol withdrawal DS: Discharge Diagnosis Discharge Diagnosis (1) Alcohol withdrawal syndrome: Code(s): F10.939 - Alcohol use, unspecified with withdrawal, unspecified Status: Acute Assessment and Plan: CIWA score down to 1 on the lower dose of Librium (2) Alcohol abuse: Code(s): F10.10 - Alcohol abuse, uncomplicated Status: Acute Assessment and Plan: continue MVI + thiamine (3) Hypertension: Qualifiers: Hypertension type: primary hypertension Qualified Code(s): I10 - Essential (primary) hypertension Code(s): I10 - Essential (primary) hypertension Status: Acute Assessment and Plan: will add clonidine (4) Gastroesophageal reflux disease: Code(s): K21.9 - Gastro-esophageal reflux disease without esophagitis Status: Acute Assessment and Plan: continue famotidine prn, PPI daily (5) Anxiety: Code(s): F41.9 - Anxiety disorder, unspecified Status: Acute Assessment and Plan: celexa Plan DVT prophylaxis with SCDs GI prophylaxis with PPI Code status full code DS: Summary Hospital Course Hospital Course: 46-year-old male with history of alcohol abuse and hypertension who presented to the ED via private vehicle from home for evaluation of tremors, nausea, and vomiting. He typically drinks a pint of rum most nights of the week however he will occasionally drink more on the weekends. This was one of those weekends and he drank a 5th of rum the last few nights. His last drink was at midnight and he felt fine when he went to bed.? At about 930 this morning he awoke from sleep with severe nausea, sweats, and tremors. He had 1 episode of emesis and continued to have dry heaves. He attempted to take a drink to help with his symptoms though was unable to hold anything down. On arrival to the ED his blood pressure was 179/113, pulse 133, respiratory rate 28. He was given lorazepam 2 milligrams IV push x1 in addition to 4 milligrams of ondansetron and his symptoms have improved significantly. He is worried that he is going to continue to have withdrawal symptoms and he is supposed to start back to work tomorrow and as such he is being admitted overnight for close monitoring and detox. At the time have my evaluation he is feeling much better is though is a bit tremulous. He denies sweats, hallucinations, and significant anxiety at this time.? No history of alcohol withdrawal seizures. Patient was weaned off of a CIWA of 19 down to 1 with Librium starting at 25 mg q.6, decreased to 10 mg q.6 with Ativan as needed. All symptoms resolved and he was discharged in good condition close outpatient follow-up with a script for Librium 10 mg to take as needed. Extensive counseling was given regarding alcohol cessation, patient appears to be in the pre contemplative stage. Time Spent with Patient Time attestation: Total time spent providing and/or coordinating discharge services: Exam Narrative: General: No acute distress, alert and oriented per baseline, somewhat tremulous HEENT: Atraumatic, normocephalic, mucous membranes moist CV: Regular rate and rhythm, S1, S2 Lungs: Clear to auscultation bilaterally, no rales or crackles noted, no wheezes, good air entry Abdomen: Soft, nontender, nondistended Extremities: Normal to inspection Skin: No rashes noted, no lesions or wounds seen Psych: Anxious, dysthymic Discharge Plan Discharge Attending physician on discharge: Amarilis Felder Discharging Clinician: Amarilis Felder Patient Disposition: Home, Self-Care Activity: as tolerated Diet: as tolerated Patient Instructions: Abuse of Alcohol (DC) Stand Alone Forms: General Discharge Information Follow-up/Referrals: Chris,EZEQUIEL Stevens [Primary Care Provider] - Discharge Medications: New clonidine HCl 0.1 mg Tablet 0.1 m
== END 2022-03-28 14:35 | disposition home or self-care (01) ==
LOC: ANHED 16:05 → ANH3MEDSUR 03-28 03:14
PROVIDERS: Physician Assistant; Admitting Provider Student in an Organized Health Care Education/Training Program; Emergency Provider Emergency Medicine; PCP Nurse Practitioner Family; Visit Provider Student in an Organized Health Care Education/Training Program
DX: F10.139 Alcohol abuse with withdrawal, unspecified (principal); Y90.0 Blood alcohol level of less than 20 mg/100 ml; I10 Essential (primary) hypertension; E78.5 Hyperlipidemia, unspecified; F12.90 Cannabis use, unspecified, uncomplicated; K21.9 Gastro-esophageal reflux disease without esophagitis; Z87.891 Personal history of nicotine dependence; Z79.899 Other long term (current) drug therapy
CPT/HCPCS: 36415; 80053; 80307; 83735; 84443; 85025; 85027; 85610; 96361; 96365; 96366; 96374; 96375; 96376; 99285; A9270; C9113; G0378; G0379; J0131; J1885; J2060; J2405; J3411; J3475; J7030

== ENCOUNTER 2022-04-23 10:55 | Emergency (ER) | payer OTHER, SELFPAY ==
[2022-04-23] VITALS (16 sets, daily range): BP systolic 153–165; BP diastolic 103–139; PULSE 96–146; RESP 10–30; O2SAT 93–100
--- NOTE | 2022-04-23 11:13 | ED.ALCOHOL ---
HPI - Alcohol General Chief Complaint: Alcohol Stated Complaint: ETOH withdrawal Time Seen by Provider: 04/23/22 11:08 History of Present Illness HPI narrative: 46-year-old male presents the emergency room for evaluation of nausea and vomiting, diaphoresis and shaking secondary to alcohol withdrawal. Patient states his last drink was yesterday. Admits to being an alcoholic, and has been drinking excessively recently. States yesterday was unable to keep any fluids or solid foods down including his blood pressure medicine. Related Data Home Medications Medication Instructions Recorded Confirmed amlodipine 10 mg tablet 10 mg PO DAILY 02/16/22 03/26/22 citalopram 20 mg tablet 20 mg PO DAILY 02/16/22 03/26/22 dicyclomine 10 mg capsule 20 mg PO BID 02/16/22 03/26/22 famotidine 20 mg tablet 20 mg PO BID PRN Heartburn 02/16/22 03/26/22 hydroxyzine HCl 50 mg PO HS 02/16/22 03/26/22 losartan 100 mg tablet 100 mg PO DAILY 02/16/22 03/26/22 ondansetron 4 mg disintegrating 4 mg PO Q8H PRN Nausea 02/16/22 03/26/22 tablet Allergies Allergy/AdvReac Type Severity Reaction Status Date / Time No Known Allergies Allergy Verified 03/26/22 18:12 Review of Systems Review of Systems: CONSTITUTIONAL: Reports diaphoresis EYES: Denies visual changes, redness, or discharge. ENT: Denies rhinorrhea, congestion, sore throat, or otalgia. CARDIOVASCULAR: Denies chest pain, palpitations, or edema. RESPIRATORY: Denies cough or dyspnea. GASTROINTESTINAL: Reports nausea vomiting GENITOURINARY: Denies dysuria or hematuria. SKIN: Denies rash or itching. MUSCULOSKELETAL: Denies back pain, joint pain, or myalgia. NEUROLOGIC: Reports tremors PSYCHIATRIC: Denies anxiety or depression. [facility] Past Medical History Medical History Alcohol abuse Borderline diabetic Eczema Gastroesophageal reflux disease Hyperlipidemia Hypertension Kidney stones Surgical History Surgical History History of appendectomy History of surgery on lower extremity Unspecified plastic surgery following right leg injury at age 10 Family History Family History Mother Hyperlipemia Heart attack Hypertension Diabetes mellitus Father Hypertension COPD (chronic obstructive pulmonary disease) Social History Social History Social History: Lives at home, independent with ADLs. Has a 13 year old daughter. 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 PCP: Rodney Perez NP POA: Le Rodriguez, mother. Code status: Full Code. Smoking packs per day: 1 Smoking cigarettes per day: 20.0 Years smoked: 5 Smoking pack-years: 5.00 Smoking status: Former smoker Alcohol intake: current Alcohol use details: Drinks 1 pint of gin or rum a day, up to a 5th on the weekends. Substance use: current Substance use type: marijuana Last use: 03/23/22 Spiritual care concerns: No Exam Narrative: GENERAL: Well-appearing, well-nourished, no physical limitations, and in no acute distress. HEAD: Normocephalic, atraumatic. EYES: Conjunctivae normal, PERRLA and EOMI. ENT: External nose normal, Nares clear, no rhinorrhea or epistaxis. Mucous membranes moist. Oropharynx without tonsillar hypertrophy exudate or other lesions. External ears normal, bilateral TMs normal bilaterally NECK: Supple. No meningeal signs. No adenopathy or masses. No carotid bruits or JVD CHEST: Clear to auscultation. No respiratory distress. No wheezes rales or rhonchi. No tenderness. HEART: Regular rate and rhythm. No murmur heard. Normal peripheral pulses. ABDOMEN: Soft, nontender, nondistended, normal active bowel sounds. BACK: No CVA tenderness EXTREMITIES: Normal range of motion. No edema. No clubbing or cyanosis SKIN: Warm, dry, no rash. No noted w
[2022-04-23] MEDS: ONDANSETRON INJ 4 MG/2 ML VIAL IV PUSH (11:21)
[2022-04-23] MEDS: SODIUM CHLORIDE 0.9% IV 1,000 ML 999 ML IV CONT ×2 (11:21→12:57)
[2022-04-23] MEDS: LORazepam INJ (*CRX) 2 MG/ML VIAL IV PUSH (11:21)
[2022-04-23 11:31] LABS: Basophils Absolute Auto 0.1 K/mm3 (0.0-0.1); Eosinophils Absolute Auto 0.1 K/mm3 (0-0.3); Eosinophils Percent Auto 1.5 % (0-4.4); Hematocrit 44.8 % (42.0-52.0); Hemoglobin 15.8 g/dL (14.0-18.0); Immature Granulocyte Percent A 1.5 % (0-0.5); Lymphocytes Absolute Auto 2.32 K/mm3 (0.9-3.2); Mean Corpuscular HGB Conc 35.3 g/dl (32-36); Mean Corpuscular Hemoglobin 31.1 pg (26-34); Mean Corpuscular Volume 88.2 fl (80-100); Monocytes Absolute Auto 0.4 K/mm3 (0.1-0.6); Monocytes Percent Auto 6.3 % (2.6-8.5); Neutrophils Absolute Auto 3.8 K/mm3 (1.3-6.7); Neutrophils Percent Auto 55.7 % (45.5-73.1); Platelet Count Result 279 k/mm3 (150-375); Red Blood Count 5.08 M/mm3 (4.6-6.20); Red Cell Distribution Width 13.4 % (11.5-14.5); White Blood Count 6.8 K/mm3 (4.5-10.0)
[2022-04-23 11:44] LABS: Alanine Aminotransferase 145 U/L (6-50); Albumin Level 5.4 g/dL (3.5-5.1); Alkaline Phosphatase 116 U/L (38-126); Anion Gap 25 mmol/L (8-16); Aspartate Amino Transferase 104 U/L (17-59); Bilirubin,Total 0.8 mg/dL (0.2-1.3); Blood Urea Nitrogen 15 mg/dL (9-20); Calcium 8.9 mg/dL (8.4-10.2); Carbon Dioxide 20 mmol/L (22-30); Chloride 100 mmol/L (98-107); Estimated CRCL calculation 107 ml/min; Estimated Glomerular Filt Rate > 60; Glucose 98 mg/dL (65-110); Lipase 118 U/L (23-300); Potassium 3.5 mmol/L (3.4-5.0); Sodium 145 mmol/L (137-145)
[2022-04-23 11:53] LABS: Ethanol 183 mg/dL (<10)
[2022-04-23] MEDS: hydrALAZINE HCL 20 MG/ML VIAL 10 MG IV PUSH (12:57)
== END 2022-04-23 14:00 | disposition home or self-care (01) ==
PROVIDERS: Emergency Provider Nurse Practitioner Family; PCP Nurse Practitioner Family
DX: F10.239 Alcohol dependence with withdrawal, unspecified (principal); Y90.6 Blood alcohol level of 120-199 mg/100 ml; R73.03 Prediabetes; K21.9 Gastro-esophageal reflux disease without esophagitis; E78.5 Hyperlipidemia, unspecified; I10 Essential (primary) hypertension; Z87.442 Personal history of urinary calculi; Z87.891 Personal history of nicotine dependence
CPT/HCPCS: 36415; 80053; 80307; 83690; 85025; 96361; 96365; 96375; 99284; J0131; J0360; J2060; J2405; J7030

== ENCOUNTER 2022-06-30 07:27 | Inpatient (IN) | payer OTHER, SELFPAY ==
[2022-06-30] VITALS (77 sets, daily range): BP systolic 132–200; BP diastolic 87–155; PULSE 87–126; RESP 8–24; TEMP 36.3–36.8; O2SAT 91–98; BMI 36.7
--- NOTE | ~2022-06-30 | US_ITS ---
EXAMINATION: US abdomen limited DATE: 07/01/2022 09:03 INDICATION: Abnormal liver function tests. TECHNIQUE: Multiple grayscale and Doppler ultrasound images of the abdomen were obtained. COMPARISON: None FINDINGS: The visualized portions of the head and body of the pancreas are normal. There is diffuse h epatic steatosis. There is normal flow in main portal vein. The gallbladder is normal in size. No gal lstones or gallbladder wall thickening. There is no sonographic Mcnamara sign. The common duct is mainor l and measures 5 mm . IMPRESSION: 1. Diffuse hepatic steatosis. Reviewed, dictated and finalized at location A. RTRAIN CONTROL SYSTEMS ENGINEER
--- NOTE | 2022-06-30 07:45 | ECG_ITS ---
Measurements Intervals [place] Rate: 105 P: 56 KS: 189 QRS: 41 QRSD: 125 T: 38 QT: 356 QTc: 471 Interpretive Statements SINUS TACHYCARDIA POOR R WAVE PROGRESSION, ANTERIOR LEADS MINIMAL Q WAVES- INFERIOR LEADS BORDERLINE T WAVE ABNORMALITY- ANTERIOR LEADS BASELINE ARTIFACT- I, III, AVL, AVF BORDERLINE ECG COMPARED TO ECG 02/16/2022 05:47:32 SINUS TACHYCARDIA NOW PRESENT Electronically Signed On 06-30-2022 8:58:03 STAGE ELECTRICIAN by Iam Akbar D.O.
--- NOTE | 2022-06-30 08:27 | ED.ALCOHOL ---
HPI - Alcohol General Chief Complaint: Alcohol Stated Complaint: ALCOHOL WITHDRAWALS ?SZ Time Seen by Provider: 06/30/22 07:36 History of Present Illness HPI narrative: Patient is a 47-year-old male with a history of alcohol use disorder, hypertension presenting with alcohol withdrawal. Patient states that he decided to take a break from drinking approximately 48 hours ago. States that he had consumed approximately 2 fifths of liquor the day prior to deciding to take a break. States that this morning he woke up and felt extremely tremulous and anxious. States that he went to the bathroom and then his found him on the toilet with his eyes rolling in the back of his head. He is unsure if he had a small seizure. He denies prior withdrawal seizures. Currently reports headache, tremors, nausea. States he feels extremely thirsty. He denies fevers, chest pain, shortness of breath, cough, abdominal pain. Smokes marijuana, denies other drugs or tobacco. Related Data Home Medications Medication Instructions Recorded Confirmed amlodipine 10 mg tablet 10 mg PO DAILY 02/16/22 06/30/22 citalopram 20 mg tablet 20 mg PO DAILY 02/16/22 06/30/22 famotidine 20 mg tablet 20 mg PO BID PRN Heartburn 02/16/22 06/30/22 hydroxyzine HCl 50 mg PO HS 02/16/22 06/30/22 losartan 100 mg tablet 100 mg PO DAILY 02/16/22 06/30/22 ondansetron 4 mg disintegrating 4 mg PO Q6H PRN Nausea 02/16/22 06/30/22 tablet Allergies Allergy/AdvReac Type Severity Reaction Status Date / Time No Known Allergies Allergy Verified 06/30/22 17:55 Review of Systems Review of Systems: All systems reviewed & are unremarkable except as noted in HPI and below PMFSH Past Medical History Medical History Alcohol abuse Borderline diabetic Eczema Gastroesophageal reflux disease Hyperlipidemia Hypertension Kidney stones Surgical History Surgical History History of appendectomy History of surgery on lower extremity Unspecified plastic surgery following right leg injury at age 10 Family History Family History Mother Hyperlipemia Heart attack Hypertension Diabetes mellitus Father Hypertension COPD (chronic obstructive pulmonary disease) Social History Social History (Updated 06/30/22 @ 21:31 by Mellissa Addison PA-C) Social History: Lives at home, independent with ADLs. Has a 13 year old daughter. 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 PCP: Rodney Perez NP POA: Le Rodriguez, mother. Code status: Full Code. Smoking packs per day: 1 Smoking cigarettes per day: 20.0 Years smoked: 5 Smoking pack-years: 5.00 Smoking status: Never smoker Alcohol intake: current Alcohol use details: Drinks 1 pint of gin or rum a day, up to a 5th on the weekends. Substance use: current Substance use type: marijuana Other substance usage details: 1-2 fifths a day Lack of Transportation: No Lack of Food: Never True Current Housing: I Have Housing Concerned About Future Housing: No Difficulty Paying Gas/Electric Bills: No Difficulty Paying for Meds: No Currently Unemployed: No Education: High School Diploma/GED Difficulty w/ Childcare or Family Care: No Spiritual care concerns: No Exam Narrative: GENERAL: Tremulous, anxious appearing male HEAD: Normocephalic, atraumatic. EYES: PERRLA and EOMI. ENT: Nares clear, no rhinorrhea or epistaxis. Mucous membranes dry, + tongue fasciculations NECK: Supple. CHEST: Clear to auscultation. No respiratory distress. HEART: Tachycardic, regular rhythm. No murmur heard. Normal peripheral pulses. ABDOMEN: Soft, nontender, nondistended, normal active bowel sounds. EXTREMITIES: Normal range of motion. No edema. Very tremulous SKIN: Warm, dry, no rash. NEURO: No focal deficits. Al
[2022-06-30] MEDS: SODIUM CHLORIDE 0.9% IV 1,000 ML 999 ML IV CONT ×2 (08:34→09:39)
[2022-06-30] MEDS: ONDANSETRON INJ 4 MG/2 ML VIAL IV PUSH ×2 (08:35→20:00)
[2022-06-30] MEDS: LORazepam INJ (*CRX) 2 MG/ML VIAL IV PUSH ×2 (08:35→13:55)
[2022-06-30 08:43] LABS: Basophils Absolute Auto 0.1 K/mm3 (0.0-0.1); Basophils Percent Auto 1.1 % (0.2-1.2); Eosinophils Absolute Auto 0.1 K/mm3 (0-0.3); Eosinophils Percent Auto 1.1 % (0-4.4); Hematocrit 45.4 % (42.0-52.0); Hemoglobin 15.6 g/dL (14.0-18.0); Immature Granulocyte Absolute 0.04 K/mm3 (0.00-0.031); Immature Granulocyte Percent A 0.7 % (0-0.5); Lymphocytes Absolute Auto 2.31 K/mm3 (0.9-3.2); Lymphocytes Percent Auto 42.2 % (18.3-44.2); Mean Corpuscular HGB Conc 34.4 g/dl (32-36); Mean Corpuscular Hemoglobin 31.8 pg (26-34); Mean Corpuscular Volume 92.5 fl (80-100); Mean Platelet Volume 9.2 fl (7.4-10.4); Monocytes Absolute Auto 0.6 K/mm3 (0.1-0.6); Neutrophils Absolute Auto 2.5 K/mm3 (1.3-6.7); Neutrophils Percent Auto 44.9 % (45.5-73.1); Platelet Count Result 289 k/mm3 (150-375); Red Blood Count 4.91 M/mm3 (4.6-6.20); Red Cell Distribution Width 13.4 % (11.5-14.5); White Blood Count 5.5 K/mm3 (4.5-10.0)
[2022-06-30 08:54] LABS: Alanine Aminotransferase 99 U/L (6-50); Albumin Level 5.2 g/dL (3.5-5.1); Alkaline Phosphatase 109 U/L (38-126); Anion Gap 13 mmol/L (8-16); Aspartate Amino Transferase 82 U/L (17-59); Bilirubin,Total 0.5 mg/dL (0.2-1.3); Blood Urea Nitrogen 15 mg/dL (9-20); Calcium 8.9 mg/dL (8.4-10.2); Carbon Dioxide 26 mmol/L (22-30); Chloride 100 mmol/L (98-107); Estimated CRCL calculation 96 ml/min; Estimated Glomerular Filt Rate > 60; Ethanol 184 mg/dL (<10); Glucose 107 mg/dL (65-110); Lipase 173 U/L (23-300); Potassium 3.5 mmol/L (3.4-5.0); Sodium 139 mmol/L (137-145)
[2022-06-30] MEDS: chlordiazePOXIDE (*CRX) 25 MG CAPSULE 50 MG PO ×3 (11:33→23:56)
[2022-06-30 11:45] LABS: Appearance Urine Clear (Clear); Bilirubin Urine Negative (Negative); Blood Urine Negative (Negative); Color Urine Yellow (Yellow); Glucose Urine UA Negative (Negative); Ketones Urine 2+ mg/dL (Negative); Leukocyte Esterase Ur Negative LEU/UL (Negative); Nitrate Urine Negative (Negative); Protein Urine 3+ mg/dL (Negative); Specific Grav Ur >= 1.030 (1.001-1.035); Urobilinogen Urine 0.2 mg/dL (<2.0)
[2022-06-30 11:51] LABS: Mucus Urine Rare /lpf; RBC Urine 0-2 /hpf (0-2); Squamous Epithelial Cell Urine Rare /hpf (Few); WBC Urine 0-3 /hpf
[2022-06-30 11:54] LABS: Reflex Lactic Acid Yes or No Add Lactic
[2022-06-30 11:58] LABS: Add Urine Microscopic? YES
[2022-06-30 12:02] LABS: Amphetamine Screen Urine Negative (Negative); Barbiturate Screen Urine Negative (Negative); Benzodiazepines Screen Urine Positive (Negative); Cannabinoid Screen Urine Positive (Negative); Cocaine Screen Urine Negative (Negative); Methadone Screen Urine Negative (Negative); Opiate Screen Urine Negative (Negative); Phencyclidine Screen Urine Negative (Negative)
[2022-06-30 12:28] LABS: Lactic Acid 2.2 mmol/L (0.7-2.0)
[2022-06-30] MEDS: PHENobarbitaL sodium (*CRX) 130 MG/ML VIAL IV PUSH ×2 (14:39→15:50)
[2022-06-30 14:52] LABS: Influenza A QL RT-PCR Negative (Negative); Influenza B QL RT-PCR Negative (Negative); SARS-CoV-2 RNA PCR Negative
--- NOTE | 2022-06-30 15:20 | PM.IMHP ---
H&P: HPI History of Present Illness Date/Time: 06/30/22 15:00 Chief Complaint: Alcohol withdrawal. Narrative: This is a 47-year-old male with history of alcohol abuse and hypertension who presented to the ED via private vehicle from home for evaluation of alcohol withdrawal symptoms. He is alert and oriented and able to provide an accurate history. Patient admits to having problems with alcohol for nearly a decade and he drinks between 1-2 fifths of liquor a day. Not long prior to arrival his found him on the toilet, minimally responsive with ?eyes rolled back into his head.? The is concerned that he may have had a seizure, possibly due to alcohol withdrawal. When he came to had several episodes of nonbloody, nonbilious emesis. With further questioning the patient does not remember going to the bathroom today or really any events that transpired this morning. He believes he has not had alcohol in the last 48 hours however however his ethyl alcohol level on arrival today was 184. In the ED his blood pressures have been as high as 200/109 (he did not take his antihypertensives today) and he has been persistently tachycardic in the low 100s in a sinus rhythm. He was alert and oriented on arrival and on exam he had tongue fasciculations and tremors. He was given lorazepam 2 mg IV push x1 in addition to chlordiazepoxide 50 mg p.o. x1 for signs and symptoms of alcohol withdrawal. His symptoms improved somewhat with this treatment however not significantly so and he received phenobarbital 130 mg IV push x2, at least 45 minutes apart, with pretty significant improvement in his symptoms. He is being admitted to the main campus medical center floor for close monitoring and treatment of alcohol withdrawal. At the time my evaluation he is feeling better. He denies current sweats, significant anxiety, and hallucinations. He has not had any further episodes of nausea or vomiting. Review of Systems Review of Systems: Twelve systems were reviewed and are negative except for as per HPI. [facility] Past Medical History Medical History Alcohol abuse Borderline diabetic Eczema Gastroesophageal reflux disease Hyperlipidemia Hypertension Kidney stones Surgical History Surgical History History of appendectomy History of surgery on lower extremity Unspecified plastic surgery following right leg injury at age 10 Family History Family History Mother Hyperlipemia Heart attack Hypertension Diabetes mellitus Father Hypertension COPD (chronic obstructive pulmonary disease) Social History Social History (Updated 06/30/22 @ 21:31 by Mellissa Addison PA-C) Social History: Lives at home, independent with ADLs. Has a 13 year old daughter. 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 PCP: Rodney Perez NP POA: Le Rodriguez, mother. Code status: Full Code. Smoking packs per day: 1 Smoking cigarettes per day: 20.0 Years smoked: 5 Smoking pack-years: 5.00 Smoking status: Never smoker Alcohol intake: current Alcohol use details: Drinks 1 pint of gin or rum a day, up to a 5th on the weekends. Substance use: current Substance use type: marijuana Other substance usage details: 1-2 fifths a day Lack of Transportation: No Lack of Food: Never True Current Housing: I Have Housing Concerned About Future Housing: No Difficulty Paying Gas/Electric Bills: No Difficulty Paying for Meds: No Currently Unemployed: No Education: High School Diploma/GED Difficulty w/ Childcare or Family Care: No Spiritual care concerns: No Meds Home Medications and Allergies Home Medications Medication Instructions Recorded Confirmed Type amlodipine 10 mg tablet 10 mg PO DAILY 02/16/22 06/30/22 History citalopram 20 mg tablet 20 mg PO DAILY
--- NOTE | 2022-06-30 17:07 | PC.NURSE ---
Addendum entered by Maranda Abreu RN 06/30/22 20:11: Provider returned call stating home blood pressure medications were given and the patient is OK to come to floor. Original Note: Prior to receiving patient to floor, primary RN had concern for elevated blood pressure and when last withdrawal medication was given. ICT DEVELOPMENT MANAGER to speak to provider regarding treating blood pressure and to callback prior to sending patient.
[2022-06-30] MEDS: amLODIPine BESYLATE 5 MG TABLET 10 MG PO (17:24)
[2022-06-30] MEDS: LOSARTAN POTASSIUM 100 MG TABLET PO (17:24)
--- NOTE | 2022-06-30 17:54 | ADMGEN ---
This patient, Miguelito Rodriguez, was admitted to 2 Medical Room 256-. Patient/family oriented to hospital policies and general routines including ID bracelet, bed and alarms, visiting hours, pain management, procedures, bathroom and other care routines, personal items, smoking policy, room service/diet, and visiting hours. Information on how to activate the Rapid Response Team has been discussed. Patient/Family are encouraged to report perceived risks to care and to ask questions if they do not understand what they are told or what they should do.
[2022-06-30] MEDS: THIAMINE HCL 200 MG/2 ML VIAL 100 MG IV PUSH (19:44)
[2022-06-30] MEDS: LORazepam INJ (*CRX) 2 MG/ML VIAL 1 MG IV PUSH ×2 (20:00→23:07)
[2022-06-30] MEDS: ACETAMINOPHEN 325 MG TABLET 650 MG PO (23:56)
[2022-07-01] VITALS (11 sets, daily range): BP systolic 115–151; BP diastolic 75–93; PULSE 75–88; RESP 12–20; TEMP 36.4–37.1; O2SAT 92–99
[2022-07-01 00:14] LABS: Glucose Point of Care 103 mg/dl (65-105)
[2022-07-01] MEDS: ONDANSETRON INJ 4 MG/2 ML VIAL IV PUSH (05:49)
[2022-07-01] MEDS: ACETAMINOPHEN 325 MG TABLET 650 MG PO ×2 (05:49→18:03)
[2022-07-01] MEDS: chlordiazePOXIDE (*CRX) 25 MG CAPSULE 50 MG PO ×4 (05:49→23:21)
[2022-07-01 06:00] LABS: Alanine Aminotransferase 71 U/L (6-50); Albumin Level 4.3 g/dL (3.5-5.1); Alkaline Phosphatase 88 U/L (38-126); Anion Gap 8 mmol/L (8-16); Aspartate Amino Transferase 60 U/L (17-59); Blood Urea Nitrogen 13 mg/dL (9-20); Carbon Dioxide 27 mmol/L (22-30); Chloride 98 mmol/L (98-107); Estimated CRCL calculation 117 ml/min; Estimated Glomerular Filt Rate > 60; Glucose 105 mg/dL (65-110); Magnesium 1.6 mg/dL (1.6-2.3); Potassium 3.3 mmol/L (3.4-5.0); Sodium 133 mmol/L (137-145)
[2022-07-01 06:16] LABS: Glucose Point of Care 133 mg/dl (65-105)
--- NOTE | 2022-07-01 06:19 | PC.NURSE ---
Pt received in cold sweat through gown, extremely shaky with arm extended- CIWA and Neuro q 4 hr. Pt quiet, respectful and cooperative. In bed all shift- Fan given for comfort. Tolerated po fluids. Zofran , tylenol, ativan librium, thiamine given. Tele -SR-ST Room air- lungs clear diminshed.. no cough. Void dark yellow per urinal. Bed alarm on- safety. Across from nursing station- frequent monitoring.
[2022-07-01 06:37] LABS: Hepatitis B Surface Antigen Negative (Negative)
[2022-07-01 06:42] LABS: HAV RESULT Negative (Negative); Hepatitis B Core IgM Result Negative (Negative)
[2022-07-01 06:54] LABS: Hepatitis C Virus Antibody Negative (Negative)
[2022-07-01 07:16] LABS: Free T4 Free Thyroxine Reflex 1.02 ng/dL (0.78-2.19)
[2022-07-01 08:13] LABS: Total Triiodothyronine (T3) 1.49 NG/ML (0.97-1.69)
[2022-07-01 09:17] LABS: Glucose Point of Care 133 mg/dl (65-105)
[2022-07-01] MEDS: PROMETHAZINE HCL 25 MG/ML AMPUL 12.5 MG IV PUSH (09:52)
[2022-07-01] MEDS: POTASSIUM CHLORIDE 20 MEQ TABLET 40 MEQ PO (09:52)
[2022-07-01] MEDS: THERAPEUTIC MULTIVITAMINS/MINERALS TAB (*BKC) 1 TABLET PO (09:52)
[2022-07-01] MEDS: CITALOPRAM HYDROBROMIDE 20 MG TABLET PO (09:53)
[2022-07-01] MEDS: amLODIPine BESYLATE 5 MG TABLET 10 MG PO (09:53)
[2022-07-01] MEDS: FOLIC ACID 1 MG TABLET PO (09:53)
[2022-07-01] MEDS: LOSARTAN POTASSIUM 100 MG TABLET PO (09:53)
[2022-07-01] MEDS: THIAMINE HCL 100 MG TABLET PO (09:53)
[2022-07-01] MEDS: cloNIDine HCL 0.1 MG TABLET PO ×2 (09:53→20:17)
[2022-07-01] MEDS: FAMOTIDINE 20 MG TABLET PO ×2 (09:53→18:05)
[2022-07-01 12:16] LABS: Glucose Point of Care 114 mg/dl (65-105)
--- NOTE | 2022-07-01 16:48 | PM.IMPN ---
Progress Note: A&P Assessment and Plan (1) Alcohol withdrawal syndrome: Code(s): F10.939 - Alcohol use, unspecified with withdrawal, unspecified Status: Acute Assessment and Plan: The patient reportedly had not had alcohol in 48 hours prior to admission but alcohol level was 184. He presented with tachycardia, hypertension, anxiety, and tremors consistent with alcohol withdrawal. -received lorazepam 2 mg IV and chlordiazepoxide 50 mg p.o. in the ED with only mild improvement. -received phenobarbital 130 mg IV x2, 45 minutes apart, with improvement in his symptoms. -On CIWA protocol: was up to 23 but CIWA at 6 range today. -Currently on Librium 50 mg q6H; Ativan 1 mg available prn CIWA >8. -Continue Thiamine, MVI and Folate. -Care coordination has provide information to the patient about alcohol rehab (2) Alcohol withdrawal seizure: Code(s): F10.939 - Alcohol use, unspecified with withdrawal, unspecified; R56.9 - Unspecified convulsions Status: Acute Assessment and Plan: Patient found in the bathroom tremulous and eyes rolled back in his head on the day of admission by patient's . -no hx of withdrawal seizures -Lactic acidosis noted but could be related to alcohol. No metabolic acidosis -continue seizure precautions. -treatment as above. (3) Hypertension: Qualifiers: Hypertension type: primary hypertension Qualified Code(s): I10 - Essential (primary) hypertension Code(s): I10 - Essential (primary) hypertension Status: Acute Assessment and Plan: Blood pressures was 190/139 on admission -combination of withdrawal and not taking his anti-HTN medications. -losartan, clonidine and Norvasc resumed. -BP has improved. Continue to monitor closely. (4) Alcohol abuse: Code(s): F10.10 - Alcohol abuse, uncomplicated Status: Acute Assessment and Plan: Longstanding problem for the patient, approximately 10 years. -Consumes 1 to 2 fifths of liquor most days. 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 -He was educated about the benefits of abstaining from alcohol (5) Elevated LFTs: Code(s): R79.89 - Other specified abnormal findings of blood chemistry Status: Acute Assessment and Plan: LFTs elevated here. Previous labs reviewed. -AST and ALT were elevated in April 2022 but were previously normal. -RUQ US showing hepatic steatosis. Hepatitis panel negative. -felt related to alcoholic hepatitis +/- hepatic steatosis (6) Gastroesophageal reflux disease: Code(s): K21.9 - Gastro-esophageal reflux disease without esophagitis Status: Acute Assessment and Plan: Stable. Continue famotidine 20 mg b.i.d. (7) Anxiety: Code(s): F41.9 - Anxiety disorder, unspecified Status: Acute Assessment and Plan: Continue citalopram. Subjective Date/time seen: 07/01/22 16:48 Interval history: 47yo male with hx of alcohol abuse and HTN here for alcohol w/d. Patient is feeling better today. No chest pain or shortness of breath. He denies ever having any history of withdrawal seizures. Does complain of a headache today. No nausea or vomiting. His last drink was on June 28 Exam Narrative: AF 97.6 128/82 79 12 98% ra Gen - NARD Chest - CTA bilaterally, nml RR CV - RRR S1/S2 Abd - Soft, NT/ND, Positive BS Ext - No pedal edema Neuro - Alert and oriented. nonfocal Psych - Nml mood and affect. slight tremors noted Skin - Warm and dry. no diaphoresis Objective Data Vital Signs Vital Signs: Vital Signs - 24 hr 06/30/22 17:02 06/30/22 17:06 06/30/22 17:23 Temperature Pulse Rate 97 95 104 H Pulse Rate [Monitor] Respiratory Rate 12 14 20 Blood Pressure 180/116 H Pulse Oximetry 96 97 Oxygen Delivery 06/30/22 17:46 06/30/22 18:12 06/30/22 18:12 Temperature 98.1 F Pulse Rate 98 Pulse Rate [Monitor] Respiratory Rate 20 Blood Pr
[2022-07-01 17:13] LABS: Glucose Point of Care 112 mg/dl (65-105)
[2022-07-01] MEDS: traZODone HCL 50 MG TABLET 100 MG PO (20:16)
[2022-07-01] MEDS: LORazepam INJ (*CRX) 2 MG/ML VIAL 1 MG IV PUSH (20:17)
[2022-07-01 20:43] LABS: Glucose Point of Care 120 mg/dl (65-105)
[2022-07-02] VITALS: BP 115/75; PULSE 66; PULSE 80
[2022-07-02 04:00] VITALS: BP 115/75; PULSE 67; PULSE 80
[2022-07-02] MEDS: chlordiazePOXIDE (*CRX) 25 MG CAPSULE 50 MG PO ×2 (05:05→13:42)
[2022-07-02] MEDS: LORazepam INJ (*CRX) 2 MG/ML VIAL 1 MG IV PUSH (05:13)
[2022-07-02 05:50] LABS: Basophils Percent Auto 0.6 % (0.2-1.2); Eosinophils Absolute Auto 0.1 K/mm3 (0-0.3); Eosinophils Percent Auto 3.6 % (0-4.4); Hematocrit 37.4 % (42.0-52.0); Hemoglobin 12.6 g/dL (14.0-18.0); Immature Granulocyte Absolute 0.02 K/mm3 (0.00-0.031); Immature Granulocyte Percent A 0.6 % (0-0.5); Lymphocytes Absolute Auto 1.09 K/mm3 (0.9-3.2); Mean Corpuscular HGB Conc 33.7 g/dl (32-36); Mean Corpuscular Hemoglobin 31.3 pg (26-34); Mean Corpuscular Volume 92.8 fl (80-100); Mean Platelet Volume 9.1 fl (7.4-10.4); Monocytes Absolute Auto 0.3 K/mm3 (0.1-0.6); Monocytes Percent Auto 9.7 % (2.6-8.5); Neutrophils Absolute Auto 1.7 K/mm3 (1.3-6.7); Neutrophils Percent Auto 52.5 % (45.5-73.1); Platelet Count Result 176 k/mm3 (150-375); Red Blood Count 4.03 M/mm3 (4.6-6.20); White Blood Count 3.3 K/mm3 (4.5-10.0)
[2022-07-02 06:00] VITALS: BP 123/81; PULSE 68; RESP 20; TEMP 36.6; O2SAT 96
[2022-07-02 06:04] LABS: Alanine Aminotransferase 64 U/L (6-50); Albumin Level 3.7 g/dL (3.5-5.1); Alkaline Phosphatase 80 U/L (38-126); Anion Gap 5 mmol/L (8-16); Aspartate Amino Transferase 54 U/L (17-59); Bilirubin,Total 0.7 mg/dL (0.2-1.3); Blood Urea Nitrogen 14 mg/dL (9-20); Calcium 8.2 mg/dL (8.4-10.2); Carbon Dioxide 27 mmol/L (22-30); Chloride 105 mmol/L (98-107); Estimated CRCL calculation 97 ml/min; Estimated Glomerular Filt Rate > 60; Glucose 118 mg/dL (65-110); Magnesium 1.8 mg/dL (1.6-2.3); Phosphorus 2.8 mg/dL (2.5-4.5); Potassium 3.5 mmol/L (3.4-5.0); Sodium 137 mmol/L (137-145)
[2022-07-02 07:05] LABS: Folic Acid 8.8 ng/mL (2.76->20)
[2022-07-02] MEDS: THERAPEUTIC MULTIVITAMINS/MINERALS TAB (*BKC) 1 TABLET PO (07:58)
[2022-07-02] MEDS: FAMOTIDINE 20 MG TABLET PO (07:58)
[2022-07-02] MEDS: amLODIPine BESYLATE 5 MG TABLET 10 MG PO (07:58)
[2022-07-02] MEDS: CITALOPRAM HYDROBROMIDE 20 MG TABLET PO (07:58)
[2022-07-02] MEDS: THIAMINE HCL 100 MG TABLET PO (07:58)
[2022-07-02] MEDS: FOLIC ACID 1 MG TABLET PO (07:59)
[2022-07-02] MEDS: cloNIDine HCL 0.1 MG TABLET PO (07:59)
[2022-07-02] MEDS: LOSARTAN POTASSIUM 100 MG TABLET PO (07:59)
[2022-07-02 08:00] VITALS: BP 136/81; PULSE 68; PULSE 69
[2022-07-02 08:46] LABS: Glucose Point of Care 119 mg/dl (65-105)
[2022-07-02 11:27] VITALS: O2SAT 96
[2022-07-02 12:00] VITALS: PULSE 81
[2022-07-02 12:06] LABS: Glucose Point of Care 123 mg/dl (65-105)
--- NOTE | 2022-07-02 15:19 | PM.DS ---
DS: Admitting Diagnosis Discharge Date 07/02/22 Admitting Diagnosis Alcohol withdrawal DS: Discharge Diagnosis Discharge Diagnosis (1) Alcohol withdrawal syndrome: Code(s): F10.939 - Alcohol use, unspecified with withdrawal, unspecified Status: Acute (2) Alcohol withdrawal seizure: Code(s): F10.939 - Alcohol use, unspecified with withdrawal, unspecified; R56.9 - Unspecified convulsions Status: Acute (3) Hypertension: Qualifiers: Hypertension type: primary hypertension Qualified Code(s): I10 - Essential (primary) hypertension Code(s): I10 - Essential (primary) hypertension Status: Acute (4) Alcohol abuse: Code(s): F10.10 - Alcohol abuse, uncomplicated Status: Acute (5) Elevated LFTs: Code(s): R79.89 - Other specified abnormal findings of blood chemistry Status: Acute (6) Gastroesophageal reflux disease: Code(s): K21.9 - Gastro-esophageal reflux disease without esophagitis Status: Acute (7) Anxiety: Code(s): F41.9 - Anxiety disorder, unspecified Status: Acute DS: Summary Hospital Course Reason for hospitalization: 47yo male with hx of alcohol abuse and HTN here for alcohol w/d. Please see H&P for details Hospital Course: The patient reportedly had not had alcohol in 48 hours prior to admission but alcohol level was 184. He presented with tachycardia, hypertension, anxiety, and tremors consistent with alcohol withdrawal. He received lorazepam and chlordiazepoxide in the ED with only mild improvement so phenobarbital given with improvement in his symptoms. He was started on scheduled Librium. He was placed on CIWA protocol: was up to 23 but CIWA at 2-3 range today. Also treated with Thiamine, MVI and Folate. Care coordination has provide information to the patient about alcohol rehab. Patient was found in the bathroom tremulous and eyes rolled back in his head on the day of admission by patient's . He has no hx of withdrawal seizures. Lactic acidosis noted but could be related to alcohol. No metabolic acidosis. He was monitored and seizure precautions started but no further events noted. He was educated about the benefits of abstaining from alcohol LFTs elevated here. Previous labs reviewed.?AST and ALT were elevated in April 2022 but were previously normal. RUQ US showing hepatic steatosis. Hepatitis panel negative. [place] elevated LFTs related to alcoholic hepatitis +/- hepatic steatosis. he feels much better. He overall did well and was discharged on 07/02/22. Status at Discharge Cognitive/behavioral status at discharge: Stable Time Spent with Patient Time attestation: Total time spent providing and/or coordinating discharge services:35 minutes Time spent: Greater than 30 minutes Exam Narrative: AF 136/81 81 20 96% ra Gen - NARD Chest - CTA bilaterally, nml RR CV - RRR S1/S2 Abd - Soft, NT/ND, Positive BS Ext - No pedal edema Psych - Nml mood and affect. No tremors noted Skin - Warm and dry. no diaphoresis DS: Data Data Completed and Pending Labs on day of discharge: Labs from last 24 hours 07/02/22 07/02/22 07/02/22 12:01 08:41 05:43 WBC RBC Hgb Hct MCV MCH MCHC RDW Plt Count MPV Immature Gran % (Auto) Neut % (Auto) Lymph % (Auto) [place] % (Auto) Eos % (Auto) Baso % (Auto) Lymph # (Auto) [place] # (Auto) Eos # (Auto) Baso # (Auto) Abs Immat Gran (auto) Absolute Neuts (auto) Absolute Nucleated RBC Nucleated RBC % Sodium 137 Potassium 3.5 Chloride 105 Carbon Dioxide 27 Anion Gap 5 L BUN 14 Creatinine 1.10 Estim Creat Clear Calc 97 Estimated GFR > 60 Glucose 118 H POC Capillary Glucose 123 H 119 H Calcium 8.2 L Phosphorus 2.8 Magnesium 1.8 Total Bilirubin 0.7 AST 54 ALT 64 H Alkaline Phosphatase 80 Total Protein 7.0 Albumin 3.7 Vit
== END 2022-07-02 16:15 | disposition home or self-care (01) | DRG 775 ==
LOC: ANHED 09:16 → ANH2MED 17:18
PROVIDERS: Physician Assistant; Admitting Provider Internal Medicine; Emergency Provider Emergency Medicine; PCP Nurse Practitioner Family; Visit Provider Internal Medicine
DX: F10.239 Alcohol dependence with withdrawal, unspecified (principal); E87.21 Acute metabolic acidosis; K70.10 Alcoholic hepatitis without ascites; G40.89 Other seizures; G25.2 Other specified forms of tremor; Z20.822 Contact with and (suspected) exposure to COVID-19; R00.0 Tachycardia, unspecified; I10 Essential (primary) hypertension; E78.5 Hyperlipidemia, unspecified; K21.9 Gastro-esophageal reflux disease without esophagitis; F41.9 Anxiety disorder, unspecified; L30.9 Dermatitis, unspecified; Z87.442 Personal history of urinary calculi; Z90.49 Acquired absence of other specified parts of digestive tract
CPT/HCPCS: 36415; 76705; 80053; 80074; 80307; 81001; 82607; 82746; 82948; 83605; 83690; 83735; 84100; 84439; 84443; 84480; 85025; 87636; 93005; 96361; 96374; 96375; 96376; 99285; A9270; J2060; J2405; J2550; J2560; J3411; J7030

== ENCOUNTER 2022-11-28 11:34 | Emergency (ER) | payer OTHER, SELFPAY ==
[2022-11-28] VITALS (13 sets, daily range): BP systolic 134–162; BP diastolic 87–117; PULSE 85–138; RESP 13–20; TEMP 36.6; O2SAT 94–99
[2022-11-28 12:55] LABS: Basophils Absolute Auto 0.1 K/mm3 (0.0-0.1); Basophils Percent Auto 0.7 % (0.2-1.2); Eosinophils Absolute Auto 0.1 K/mm3 (0-0.3); Eosinophils Percent Auto 0.7 % (0-4.4); Hematocrit 43.7 % (42.0-52.0); Hemoglobin 15.4 g/dL (14.0-18.0); Immature Granulocyte Absolute 0.04 K/mm3 (0.00-0.031); Immature Granulocyte Percent A 0.6 % (0-0.5); Lymphocytes Absolute Auto 1.58 K/mm3 (0.9-3.2); Mean Corpuscular HGB Conc 35.2 g/dl (32-36); Mean Corpuscular Hemoglobin 31.6 pg (26-34); Mean Corpuscular Volume 89.7 fl (80-100); Mean Platelet Volume 9.5 fl (7.4-10.4); Monocytes Absolute Auto 0.6 K/mm3 (0.1-0.6); Monocytes Percent Auto 7.7 % (2.6-8.5); Neutrophils Absolute Auto 4.9 K/mm3 (1.3-6.7); Neutrophils Percent Auto 68.3 % (45.5-73.1); Platelet Count Result 321 k/mm3 (150-375); Red Blood Count 4.87 M/mm3 (4.6-6.20); Red Cell Distribution Width 12.9 % (11.5-14.5); White Blood Count 7.2 K/mm3 (4.5-10.0)
[2022-11-28 13:04] LABS: Alanine Aminotransferase 84 U/L (6-50); Alkaline Phosphatase 105 U/L (38-126); Anion Gap 17 mmol/L (8-16); Aspartate Amino Transferase 47 U/L (17-59); Bilirubin,Total 0.8 mg/dL (0.2-1.3); Blood Urea Nitrogen 16 mg/dL (9-20); Calcium 9.1 mg/dL (8.4-10.2); Carbon Dioxide 18 mmol/L (22-30); Chloride 104 mmol/L (98-107); Estimated CRCL calculation 87 ml/min; Estimated Glomerular Filt Rate > 60; Glucose 119 mg/dL (65-110); Potassium 3.5 mmol/L (3.4-5.0); Sodium 139 mmol/L (137-145)
--- NOTE | 2022-11-28 13:18 | ED.GENADULT ---
HPI - General Adult General Chief complaint: Unspecified Stated complaint: etoh withdrawal Time Seen by Provider: 11/28/22 12:44 History of Present Illness HPI narrative: Patient is a 47-year-old male with a history of hypertension, depression, alcohol use disorder presenting with alcohol withdrawal. Patient states that he was drinking last night. Last drink was sometime between 9 and 10 PM. States that he woke up this morning with nausea and a headache. States that he was unable to keep anything down. States that he was reading on the Internet that he needed to come in for evaluation. States that he would like to stop drinking. States that he has been drinking more and more lately due to a in the family. States that he has been admitted in the past for alcohol withdrawal. Denies seizure activity. Denies any pain other than headache. States he still feels nauseous. Related Data Home Medications Medication Instructions Recorded Confirmed amlodipine 10 mg tablet 10 mg PO DAILY 02/16/22 06/30/22 citalopram 20 mg tablet 20 mg PO DAILY 02/16/22 06/30/22 famotidine 20 mg tablet 20 mg PO BID PRN Heartburn 02/16/22 06/30/22 hydroxyzine HCl 50 mg PO HS 02/16/22 06/30/22 losartan 100 mg tablet 100 mg PO DAILY 02/16/22 06/30/22 ondansetron 4 mg disintegrating 4 mg PO Q6H PRN Nausea 02/16/22 06/30/22 tablet Allergies Allergy/AdvReac Type Severity Reaction Status Date / Time No Known Allergies Allergy Verified 11/28/22 12:35 Review of Systems Review of Systems: All systems reviewed & are unremarkable except as noted in HPI and below PMFSH Past Medical History Medical History Alcohol abuse Borderline diabetic Eczema Gastroesophageal reflux disease Hyperlipidemia Hypertension Kidney stones Surgical History Surgical History History of appendectomy History of surgery on lower extremity Unspecified plastic surgery following right leg injury at age 10 Family History Family History Mother Hyperlipemia Heart attack Hypertension Diabetes mellitus Father Hypertension COPD (chronic obstructive pulmonary disease) Social History Social History Social History: Lives at home, independent with ADLs. Has a 13 year old daughter. 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 PCP: Rodney Perez NP POA: Le Rodriguez, mother. Code status: Full Code. Smoking packs per day: 1 Smoking cigarettes per day: 20.0 Years smoked: 5 Smoking pack-years: 5.00 Smoking status: Never smoker Alcohol intake: current Alcohol use details: Drinks 1 pint of gin or rum a day, up to a 5th on the weekends. Substance use: current Substance use type: marijuana Other substance usage details: 1-2 fifths a day Lack of Transportation: No Lack of Food: Never True Current Housing: I Have Housing Concerned About Future Housing: No Difficulty Paying Gas/Electric Bills: No Difficulty Paying for Meds: No Currently Unemployed: No Education: High School Diploma/GED Difficulty w/ Childcare or Family Care: No Spiritual care concerns: No Exam Narrative: GENERAL: Anxious, tremulous, diaphoretic HEAD: Normocephalic, atraumatic. EYES: PERRLA and EOMI. ENT: Nares clear, no rhinorrhea or epistaxis. Mucous membranes moist. + Tongue fasciculations NECK: Supple. CHEST: Clear to auscultation. No respiratory distress. HEART: Tachycardic, regular rhythm ABDOMEN: Soft, nontender, nondistended EXTREMITIES: Normal range of motion. No edema. SKIN: Warm, dry, no rash. NEURO: No focal deficits. Alert and oriented x3. Tremulous in all extremities PSYCH: Anxious but pleasant and cooperative Course Vital Signs Vital signs: Vital Signs Temperature 97.8 F
[2022-11-28] MEDS: LACTATED RINGERS 1,000 ML 999 ML IV CONT ×2 (13:39→14:38)
[2022-11-28] MEDS: ONDANSETRON INJ 4 MG/2 ML VIAL IV PUSH (13:40)
[2022-11-28] MEDS: FAMOTIDINE 20 MG/2 ML VIAL IV PUSH (13:42)
[2022-11-28 13:49] LABS: Lipase 90 U/L (23-300); Magnesium 1.7 mg/dL (1.6-2.3)
[2022-11-28] MEDS: LORazepam INJ (*CRX) 2 MG/ML VIAL IV PUSH (13:49)
[2022-11-28 13:51] LABS: Ethanol 17 mg/dL (<10)
[2022-11-28] MEDS: chlordiazePOXIDE (*CRX) 25 MG CAPSULE 50 MG PO ×2 (14:14→20:22)
[2022-11-28 14:23] LABS: Lactic Acid Reflex 3.9 mmol/L (0.7-2.0)
--- NOTE | 2022-11-28 15:15 | PCCCNOTE ---
CC consulted for alcohol resources for patient. CC verified information on facesheet with patient. Patients face sheet given to Yadiel with Rafy, outpatient drug and alcohol rehab counselor. Yadiel will continue to follow patient after he meets with patient bedside. CC will continue to follow as well.
[2022-11-28 17:09] LABS: Reflex Lactic Acid Yes or No Add Lactic
[2022-11-28 17:38] LABS: Lactic Acid 2.2 mmol/L (0.7-2.0)
== END 2022-11-28 21:11 | disposition home or self-care (01) ==
PROVIDERS: Emergency Medicine; Emergency Provider Emergency Medicine; PCP Nurse Practitioner Family
DX: F10.139 Alcohol abuse with withdrawal, unspecified (principal); Y90.0 Blood alcohol level of less than 20 mg/100 ml; I10 Essential (primary) hypertension; E78.5 Hyperlipidemia, unspecified; R73.03 Prediabetes; K21.9 Gastro-esophageal reflux disease without esophagitis; Z87.442 Personal history of urinary calculi; F17.210 Nicotine dependence, cigarettes, uncomplicated
CPT/HCPCS: 36415; 80053; 80307; 83605; 83690; 83735; 85025; 96361; 96374; 96375; 99284; A9270; J2060; J2405; J7120

== ENCOUNTER 2023-06-06 09:20 | Emergency (ER) | payer OTHER, SELFPAY ==
[2023-06-06 09:21] VITALS: BP 140/110; PULSE 132; RESP 20; TEMP 36.3; O2SAT 97
--- NOTE | 2023-06-06 09:47 | ECG_ITS ---
Measurements Intervals [place] Rate: 102 P: 63 IA: 184 QRS: -84 QRSD: 110 T: 43 QT: 351 QTc: 458 Interpretive Statements SINUS TACHYCARDIA INCOMPLETE RIGHT BUNDLE BRANCH BLOCK [90+ ms QRS DURATION, TERMINAL R IN V1/V2, 40+ ms S IN I/aVL/V4/V5/V6] LEFT ANTERIOR FASCICULAR BLOCK [QRS AXIS <= -45, QR IN I, RS IN II] COMPARED TO ECG 06/30/2022 07:45:21 INCOMPLETE RIGHT BUNDLE-BRANCH BLOCK NOW PRESENT Electronically Signed On 06-06-2023 20:53:38 ENGINEER INTERN by Charleen Liu M.D.
[2023-06-06] MEDS: SODIUM CHLORIDE 0.9% IV 1,000 ML 999 ML IV CONT (09:52)
[2023-06-06] MEDS: ONDANSETRON INJ 4 MG/2 ML VIAL IV PUSH (09:52)
[2023-06-06 10:00] VITALS: BP 154/100; PULSE 102; RESP 20; O2SAT 96
--- NOTE | 2023-06-06 10:00 | PC.NURSE ---
maral pandey unable to obtain EKG at this time
[2023-06-06 10:02] LABS: Basophils Absolute Auto 0.1 K/mm3 (0.0-0.1); Basophils Percent Auto 1.1 % (0.2-1.2); Eosinophils Percent Auto 0.3 % (0-4.4); Hematocrit 46.8 % (42.0-52.0); Hemoglobin 15.6 g/dL (14.0-18.0); Immature Granulocyte Absolute 0.05 K/mm3 (0.00-0.031); Immature Granulocyte Percent A 0.7 % (0-0.5); Lymphocytes Absolute Auto 2.34 K/mm3 (0.9-3.2); Lymphocytes Percent Auto 33.4 % (18.3-44.2); Mean Corpuscular HGB Conc 33.3 g/dl (32-36); Mean Corpuscular Hemoglobin 29.8 pg (26-34); Mean Corpuscular Volume 89.3 fl (80-100); Mean Platelet Volume 9.5 fl (7.4-10.4); Monocytes Absolute Auto 0.5 K/mm3 (0.1-0.6); Monocytes Percent Auto 7.7 % (2.6-8.5); Neutrophils Percent Auto 56.8 % (45.5-73.1); Platelet Count Result 351 k/mm3 (150-375); Red Blood Count 5.24 M/mm3 (4.6-6.20); Red Cell Distribution Width 14.1 % (11.5-14.5)
--- NOTE | 2023-06-06 10:04 | ED.ALCOHOL ---
HPI - Alcohol General Chief Complaint: Alcohol Stated Complaint: ETOH withdrawals Time Seen by Provider: 06/06/23 09:47 Source: patient Mode of arrival: wheelchair Limitations: no limitations History of Present Illness HPI narrative: This is a 48 year old male that presents to the ER for alcohol withdrawal. Reports he drinks about a 1/5 daily of liquor. He would like to stop drinking. He does not believe he has had withdrawal seizures before. Reports he has had to be admitted for the hospital for withdrawal in the past. His last drink was about 24 hours ago. Denies visual or auditory hallucinations. Related Data Home Medications Medication Instructions Recorded Confirmed amlodipine 10 mg tablet 10 mg PO DAILY 02/16/22 06/30/22 citalopram 20 mg tablet 20 mg PO DAILY 02/16/22 06/30/22 famotidine 20 mg tablet 20 mg PO BID PRN Heartburn 02/16/22 06/30/22 hydroxyzine HCl 50 mg PO HS 02/16/22 06/30/22 losartan 100 mg tablet 100 mg PO DAILY 02/16/22 06/30/22 ondansetron 4 mg disintegrating 4 mg PO Q6H PRN Nausea 02/16/22 06/30/22 tablet Allergies Allergy/AdvReac Type Severity Reaction Status Date / Time No Known Allergies Allergy Verified 11/28/22 12:35 Review of Systems Review of Systems: CONSTITUTIONAL: Denies fever CARDIOVASCULAR: Denies chest pain RESPIRATORY: Denies dyspnea. GASTROINTESTINAL: Reports nausea, vomiting PSYCHIATRIC: Reports anxiety All systems reviewed & are unremarkable except as noted in HPI and below PMFSH Past Medical History Medical History Alcohol abuse Borderline diabetic Eczema Gastroesophageal reflux disease Hyperlipidemia Hypertension Kidney stones Surgical History Surgical History History of appendectomy History of surgery on lower extremity Unspecified plastic surgery following right leg injury at age 10 Family History Family History Mother Hyperlipemia Heart attack Hypertension Diabetes mellitus Father Hypertension COPD (chronic obstructive pulmonary disease) Social History Social History Social History: Lives at home, independent with ADLs. Has a 13 year old daughter. 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 PCP: Rodney Perez NP POA: Le Rodriguez, mother. Code status: Full Code. Smoking packs per day: 1 Smoking cigarettes per day: 20.0 Years smoked: 5 Smoking pack-years: 5.00 Smoking status: Never smoker Alcohol intake: current Alcohol use details: Drinks 1 pint of gin or rum a day, up to a 5th on the weekends. Substance use: current Substance use type: marijuana Other substance usage details: 1-2 fifths a day Lack of Transportation: No Lack of Food: Never True Current Housing: I Have Housing Concerned About Future Housing: No Difficulty Paying Gas/Electric Bills: No Difficulty Paying for Meds: No Currently Unemployed: No Education: High School Diploma/GED Difficulty w/ Childcare or Family Care: No Spiritual care concerns: No Exam Narrative: GENERAL: Tremulous, actively vomiting HEAD: Normocephalic, atraumatic. EYES: PERRLA and EOMI. ENT: Nares clear, no rhinorrhea or epistaxis. Mucous membranes moist. Oropharynx without tonsillar hypertrophy exudate or other lesions. CHEST: Clear to auscultation. No respiratory distress. No wheezes rales or rhonchi HEART: Regular rate and rhythm. No murmur heard. Normal peripheral pulses. ABDOMEN: Soft, nontender, nondistended, normal active bowel sounds. EXTREMITIES: Normal range of motion. No edema. SKIN: Warm, dry, no rash. NEURO: No focal deficits. Alert and oriented x3. PSYCH: Mildly anxious Course Course Emergency Course: Patient updated on his workup and agrees with plan of care Vital Signs Vital
[2023-06-06 10:13] LABS: Prothrombin Time 13.1 Seconds (11.1-14.7)
[2023-06-06 10:14] LABS: Partial Thromboplastin Time 30.9 SECONDS (22.3-36.8)
[2023-06-06 10:15] LABS: Ethanol 274 mg/dL (<10)
[2023-06-06 10:16] LABS: Alanine Aminotransferase 82 U/L (6-50); Albumin Level 5.1 g/dL (3.5-5.1); Alkaline Phosphatase 102 U/L (38-126); Anion Gap 25 mmol/L (8-16); Aspartate Amino Transferase 77 U/L (17-59); Blood Urea Nitrogen 18 mg/dL (9-20); Calcium 9.1 mg/dL (8.4-10.2); Carbon Dioxide 15 mmol/L (22-30); Chloride 103 mmol/L (98-107); Estimated CRCL calculation 80 ml/min; Estimated Glomerular Filt Rate 59; Glucose 120 mg/dL (65-110); Lipase 238 U/L (23-300); Potassium 3.8 mmol/L (3.4-5.0); Sodium 143 mmol/L (137-145)
[2023-06-06] MEDS: LORazepam INJ (*CRX) 2 MG/ML VIAL IV PUSH (10:16)
[2023-06-06 10:18] LABS: Glucose Point of Care 99 mg/dl (65-105)
[2023-06-06 10:19] LABS: Magnesium 2.3 mg/dL (1.6-2.3); Phosphorus 3.5 mg/dL (2.5-4.5)
[2023-06-06] MEDS: FAMOTIDINE 20 MG/2 ML VIAL IV PUSH (10:25)
[2023-06-06 10:34] LABS: Appearance Urine Clear (Clear); Bacteria Urine None Seen /hpf; Bilirubin Urine Negative (Negative); Blood Urine 1+ (Negative); Color Urine Yellow (Yellow); Glucose Urine UA Negative (Negative); Ketones Urine 2+ mg/dL (Negative); Leukocyte Esterase Ur Negative LEU/UL (Negative); Need Manual Microscopic Reviewed; Nitrate Urine Negative (Negative); Protein Urine 3+ mg/dL (Negative); RBC Urine 0-2 /hpf (0-2); Specific Grav Ur 1.023 (1.001-1.035); Squamous Epithelial Cell Urine None seen /hpf (Few); WBC Urine 0-5 /hpf
[2023-06-06 10:35] LABS: Add Urine Microscopic? YES
[2023-06-06 10:47] LABS: Amphetamine Screen Urine Negative (Negative); Barbiturate Screen Urine Negative (Negative); Benzodiazepines Screen Urine Negative (Negative); Cannabinoid Screen Urine Positive (Negative); Cocaine Screen Urine Negative (Negative); Methadone Screen Urine Negative (Negative); Opiate Screen Urine Negative (Negative); Phencyclidine Screen Urine Negative (Negative)
[2023-06-06 11:00] VITALS: BP 148/90; PULSE 92; RESP 16; TEMP 36.7; O2SAT 98
[2023-06-06 11:26] VITALS: BP 142/99; PULSE 103; RESP 18; O2SAT 96
[2023-06-06 12:01] VITALS: BP 148/106; PULSE 104; RESP 16; TEMP 36.7; O2SAT 98
[2023-06-06 12:32] VITALS: BP 123/93; PULSE 103; RESP 20; O2SAT 98
--- NOTE | 2023-06-06 12:36 | PCCCNOTE ---
Spoke with pt regarding alcohol treatment. Pt aware of [facility], pt indicated that it is OK to pass his number to Yadiel for further follow up on alcohol treatment and rehab.
== END 2023-06-06 12:52 | disposition home or self-care (01) ==
PROVIDERS: Emergency Provider Physician Assistant; PCP Nurse Practitioner Family
DX: F10.239 Alcohol dependence with withdrawal, unspecified (principal); E78.5 Hyperlipidemia, unspecified; I10 Essential (primary) hypertension; F17.210 Nicotine dependence, cigarettes, uncomplicated
CPT/HCPCS: 36415; 80053; 80307; 81001; 82948; 83690; 83735; 84100; 85025; 85610; 85730; 93005; 96361; 96374; 96375; 99284; J2060; J2405; J7030

== ENCOUNTER 2025-04-22 12:37 | Emergency (ER) | payer OTHER, SELFPAY ==
--- NOTE | 2025-04-22 12:41 | ECG_ITS ---
Test Date: 2025-04-22 12:46:25 Measurements Intervals [place] Rate: 109 P: 68 LA: 189 QRS: 2 QRSD: 113 T: 50 QT: 333 QTc: 450 Interpretive Statements SINUS TACHYCARDIA INCOMPLETE RIGHT BUNDLE BRANCH BLOCK [90+ ms QRS DURATION, TERMINAL R IN V1/V2, 40+ ms S IN I/aVL/V4/V5/V6] ABNORMAL RHYTHM ECG No previous ECG available for comparison Electronically Signed On 04-22-2025 13:24:09 DRAWSTRING KNOTTER by Madi Robertson M.D.
[2025-04-22 12:42] VITALS: BP 148/98; PULSE 107; RESP 12; TEMP 36.6; O2SAT 97
[2025-04-22 12:58] LABS: Hematocrit 40.4 % (42.0-52.0); Hemoglobin 14.0 g/dL (14.0-18.0); Immature Granulocyte Percent A 1.5 % (0-0.5); Lymphocytes Absolute Auto 1.16 K/mm3 (0.9-3.2); Mean Corpuscular HGB Conc 34.7 g/dl (32-36); Mean Corpuscular Hemoglobin 29.9 pg (26-34); Mean Corpuscular Volume 86.3 fl (80-100); Nucleated Red Blood Cells Absolute Auto 0.000 K/mm3 (0.0-0.012); Nucleated Red Blood Cells Perc 0.0 % (0.0-0.2); Platelet Count Result 261 k/mm3 (150-375); Red Blood Count 4.68 M/mm3 (4.6-6.20); White Blood Count 9.0 K/mm3 (4.5-10.0)
[2025-04-22 13:11] LABS: Alanine Aminotransferase 28 U/L (6-50); Albumin Level 4.8 g/dL (3.5-5.1); Alkaline Phosphatase 84 U/L (38-126); Anion Gap 15 mmol/L (4-12); Aspartate Amino Transferase 30 U/L (17-59); Bilirubin,Total 0.6 mg/dL (0.2-1.3); Blood Urea Nitrogen 24 mg/dL (9-20); Calcium 9.1 mg/dL (8.4-10.2); Carbon Dioxide 20 mmol/L (22-30); Chloride 102 mmol/L (98-107); Estimated CRCL calculation 99 ml/min; Estimated Glomerular Filt Rate > 60; Glucose 100 mg/dL (65-110); Lipase 67 U/L (23-300); Potassium 4.0 mmol/L (3.4-5.0); Sodium 137 mmol/L (137-145); Total Protein 8.2 g/dL (6.3-8.2)
--- NOTE | 2025-04-22 13:15 | ED.NAVMDI ---
HPI - Nausea/Vomiting/Diarrhea General Chief complaint: Nausea/Vomiting/Diarrhea Stated complaint: drank 1 gallon of ETOH yesterday Time Seen by Provider: 04/22/25 13:05 History of Present Illness HPI Narrative: Pt presents today with vomiting and diarrhea. Pt admits to drinking large amount of alcohol yesterday. Pt had stopped drinking for years but has started drinking again recently and drank a lot last night. Pt denies pain or fever. Related Data Home Medications ?Medication ?Instructions ?Recorded ?Confirmed ?Last Taken ?Type amlodipine 10 mg tablet 10 mg PO DAILY 02/16/22 06/30/22 06/29/22 History citalopram 20 mg tablet 20 mg PO DAILY 02/16/22 06/30/22 06/29/22 History famotidine 20 mg tablet 20 mg PO BID PRN Heartburn 02/16/22 06/30/22 06/29/22 History hydroxyzine HCl 50 mg PO HS 02/16/22 06/30/22 06/29/22 History losartan 100 mg tablet 100 mg PO DAILY 02/16/22 06/30/22 06/29/22 History ondansetron 4 mg disintegrating 4 mg PO Q6H PRN Nausea 02/16/22 06/30/22 Unknown History tablet Allergies Allergy/AdvReac Type Severity Reaction Status Date / Time No Known Allergies Allergy Verified 04/22/25 12:50 Review of Systems Review of Systems: All systems reviewed & are unremarkable except as noted in HPI and below PMFSH Past Medical History Medical History Alcohol abuse Borderline diabetic Eczema Gastroesophageal reflux disease Hyperlipidemia Hypertension Kidney stones Surgical History Surgical History History of appendectomy History of surgery on lower extremity Unspecified plastic surgery following right leg injury at age 10 Family History Family History Mother Hyperlipemia Heart attack Hypertension Diabetes mellitus Father Hypertension COPD (chronic obstructive pulmonary disease) Social History Social History Social History: Lives at home, independent with ADLs. Has a 13 year old daughter. 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 PCP: Rodney Perez NP POA: Le Rodriguez, mother. Code status: Full Code. Smoking packs per day: 1 Smoking cigarettes per day: 20.0 Years smoked: 5 Smoking pack-years: 5.00 Alcohol intake: current Alcohol use details: Drinks 1 pint of gin or rum a day, up to a 5th on the weekends. Substance use: current Substance use type: marijuana Other substance usage details: 1-2 fifths a day Lack of Transportation: No Lack of Food: Never True Current Housing: I Have Housing Concerned About Future Housing: No Difficulty Paying Gas/Electric Bills: No Difficulty Paying for Meds: No Currently Unemployed: No Education: High School Diploma/GED Difficulty w/ Childcare or Family Care: No Spiritual care concerns: No Exam Const: General: healthy appearing and no acute distress Nutritional Appearance: well nourished Orientation/consciousness: patient oriented x3 Limitations: no limitations Neck: Neck: normal visual inspection, no lymphadenopathy and no meningeal signs Resp: Effort & Inspection: normal respiratory effort Auscultation: clear to auscultation bilaterally Cardio: Rate: regular rate Rhythm: regular rhythm GI: GI Palp: Yes Soft to palpation and No Tenderness to palpation present (GI) Auscultation: normal bowel sounds Neuro: General: patient oriented x3, moves all extremities, no meningeal signs, no focal motor deficits and CN's II-XI intact bilaterally Speech: normal speech Extrem: General: normal to inspection and no clubbing, cyanosis or edema Psych: Mental Status: mental status grossly normal Affect: normal affect Attitude: cooperative Course Vital Signs Vital signs: Vital Signs Temperature 97.8 F 04/22/25 12:42 Pulse Rate 107 H 04/22/25 12:42 Respiratory Rate 12 04/22/25 12:42 Blood Pressure 148/98 H 04/22/25 12:42 Pulse Oximetry 97 04/22/25 12:42 Oxygen Delivery Room Air 04/22/25 12:42 Temperature 97.8 F 04/22/25 12:42 Pulse Rate 103 H 04/22/25 15:54 Respiratory Rate 20 04/22/25 15:54 Blood Pressure 143/78 H 04/22/25 15:54 Pulse Oximetry 97 04/22/25 15:54 Oxygen Delivery Room Air 04/22/25 12:42 MDM - Nausea/Vomiting/Diarrhea MDM Narrative Medical decision making narrative: will give fluids and zofran and check labs. bal 42 remainder of labs fine. Pt feels better. Home on zofran Differential Diagnosis Differential diagnosis: Likely traveler's diarrhea, food poisoning, gastroenteritis, clostridium difficile infection, dehydration and other (alcohol intoxication) Lab Data Attestation: I reviewed the patient's lab results. 04/22/25 12:53 04/22/25 12:53 Labs: Lab Results 04/22/25 04/22/25 Range/Units 12:53 13:05 WBC 9.0 (4.5-10.0) K/mm3 RBC 4.68 (4.6-6.20) M/mm3 Hgb 14.0 (14.0-18.0) g/dL Hct 40.4 L (42.0-52.0) % MCV 86.3 (80-100) fl MCH 29.9 (26-34) pg MCHC 34.7 (32-36) g/dl RDW 13.3 (11.5-14.5) % Plt Count 261 (150-375) k/mm3 MPV 9.1 (7.4-10.4) fl Immature Gran % (Auto) 1.5 H (0-0.5) % Neut % (Auto) 78.3 H (45.5-73.1) % Lymph % (Auto) 12.9 L (18.3-44.2) % Larue % (Auto) 6.6 (2.6-8.5) % Eos % (Auto) 0.3 (0-4.4) % Baso % (Auto) 0.4 (0.2-1.2) % Lymph # (Auto) 1.16 (0.9-3.2) K/mm3 Larue # (Auto) 0.6 (0.1-0.6) K/mm3 Eos # (Auto) 0.0 (0-0.3) K/mm3 Baso # (Auto) 0.0 (0.0-0.1) K/mm3 Abs Immat Gran (auto) 0.13 H (0.00-0.031) K/mm3 Absolute Neuts (auto) 7.0 H (1.3-6.7) K/mm3 Absolute Nucleated RBC 0.000 (0.0-0.012) K/mm3 Nucleated RBC % 0.0 (0.0-0.2) % Sodium 137 (137-145) mmol/L Potassium 4.0 (3.4-5.0) mmol/L Chloride 102 (98-107) mmol/L Carbon Dioxide 20 L (22-30) mmol/L Anion Gap 15 H (4-12) mmol/L BUN 24 H (9-20) mg/dL Creatinine 1.02 (0.7-1.3) mg/dL Estim Creat Clear Calc 99 ml/min Estimated GFR > 60 (59 - ) Glucose 100 (65-110) mg/dL Calcium 9.1 (8.4-10.2) mg/dL Total Bilirubin 0.6 (0.2-1.3) mg/dL AST 30 (17-59) U/L ALT 28 (6-50) U/L Alkaline Phosphatase 84 (38-126) U/L Total Protein 8.2 (6.3-8.2) g/dL Albumin 4.8 (3.5-5.1) g/dL Lipase 67 (23-300) U/L Urine Color Yellow (Yellow) Urine Appearance Clear (Clear) Urine pH 6.0 (5.0-9.0) Ur Specific [place] 1.019 (1.001-1.035) Urine Protein 2+ H (Negative) mg/dL Urine Glucose (UA) Negative (Negative) mg/dL Urine Ketones Negative (Negative) mg/dL Ur Blood (Man) Negative (Negative) Urine Nitrate Negative (Negative) Urine Bilirubin Negative (Negative) Urine Urobilinogen 0.2 (<2.0) mg/dL Leukocyte Esterase Rfl Negative (Negative) HATTIE/UL Urine RBC 0-2 (0-2) /hpf Urine WBC 0-5 (0-3) /hpf Ur Squamous Epith Cells None seen (Few) /hpf Urine Bacteria None seen /hpf Urine Casts 0-2 Ethyl Alcohol 42 (<10) mg/dL Discharge Plan Discharge Clinical Impression: Gastroenteritis, Alcohol abuse Patient Disposition: Home Condition: Improved Instructions: Antibiotic Form, Gastroenteritis (ED), Abuse of Alcohol (ED), Acute Nausea and Vomiting (ED) Patient Language: Haitian Prescriptions: New ondansetron 4 mg tablet,disintegrating 4 mg PO Q8H PRN (Reason: nausea and vomiting) Qty: 14 0RF No Action clonidine HCl 0.1 mg Tablet 0.1 mg PO Q12HR 30 Days Qty: 60 0RF trazodone 50 mg Tablet 100 mg PO HS 30 Days Qty: 60 0RF thiamine HCl (vitamin B1) [Vitamin B-1] 100 mg Tablet 100 mg PO QAM 30 Days Qty: 30 0RF folic acid 1 mg Tablet 1 mg PO DAILY 30 Days Qty: 30 0RF chlordiazepoxide HCl 25 mg capsule 25 mg PO DIRECTED Qty: 10 0RF Rx Instructions: 25mg 3x/day for 2 days then 25mg 2x/day for 2 days then 25mg at bedtime x 2 days then off. amlodipine 10 mg tablet 10 mg PO DAILY losartan 100 mg tablet 100 mg PO DAILY hydroxyzine HCl 50 mg PO HS citalopram 20 mg tablet 20 mg PO DAILY famotidine 20 mg tablet 20 mg PO BID PRN (Reason: Heartburn) ondansetron 4 mg tablet,disintegrating 4 mg PO Q6H PRN (Reason: Nausea) gabapentin 100 mg capsule 100 mg PO TID PRN (Reason: alcohol withdrawal) Qty: 12 0RF chlordiazepoxide HCl 25 mg capsule 25 mg PO Q6-12H Qty: 7 0RF Rx Instructions: Please take 25mg four times a day on the first day. Take 25mg twice a day on the second day. Take 25mg at bedtime on the third day. chlordiazepoxide HCl 25 mg capsule 25 mg PO Q6H PRN (Reason: alcohol withdrawal) Qty: 20 0RF Rx Instructions: Day 1: 50mg every 6-12 hours as needed; days 2-5: 25mg every 6 hours as needed ondansetron 4 mg tablet,disintegrating 4 mg PO Q8H PRN (Reason: nausea and vomiting) Qty: 10 0RF Follow-up/Referrals: Chris,EZEQUIEL Stevens [Primary Care Provider]
[2025-04-22 13:18] LABS: Add Urine Microscopic? YES; Appearance Urine Clear (Clear); Glucose Urine UA Negative (Negative); Leukocyte Esterase Ur Negative LEU/UL (Negative); Nitrate Urine Negative (Negative); Non Pathogenic Casts 0-2; Specific Grav Ur 1.019 (1.001-1.035)
[2025-04-22] MEDS: ONDANSETRON INJ 4 MG/2 ML VIAL IV PUSH (13:38)
[2025-04-22] MEDS: SODIUM CHLORIDE 0.9% IV 1,000 ML 999 ML IV CONT (13:39)
--- OUTSIDE RECORDS SUMMARY | 2025-04-22 14:20 | XMS_ITS | Clinical Summary ---
Author Organization [facility] Address [address] [place] [address] Care Team Providers Care Marketing Operations Coordinator Name Role Phone No, Physician Primary Care Provider [phone] Allergies No known active allergies Medications citalopram (CeleXA) 20 mg tabletIndicat ions:Generali zed Anxiety Disorder Take 1 tablet (20 mg total) by mouth every morning Active UNABLE TO FINDIndicatio ns:supplement Take by mouth every morning Med Name: Adaptogen supplement, 2 capsules Active UNABLE TO FINDIndicatio ns:supplement Take by mouth every morning Med Name: Nootropic supplement, 2 capsules Active acetaminophen (TYLENOL) 500 mg tabletIndicat ions:Fracture , metacarpal Take 1 tablet (500 mg total) by mouth every 6 (six) hours as needed for pain 30 tablet 10/31/[address] (NexIUM) 20 mg capsule Take 1 capsule (20 mg total) by mouth daily before breakfast Active propranoloL (INDERAL) 10 mg tablet Take 1 tablet (10 mg total) by mouth 2 (two) times a day 60 tablet 1 03/30/20 25 025 Active amLODIPine (NORVASC) 5 mg tablet Take 1 tablet (5 mg total) by mouth daily 90 tablet 03/30/20 25 026 Active losartan (COZAAR) 25 mg tablet Take 1 tablet (25 mg total) by mouth daily 30 tablet 1 03/30/20 25 025 Active amLODIPine (NORVASC) 5 mg tablet Take 1 tablet (5 mg total) by mouth daily 30 tablet 1 10/29/19 25 Discontinued bacitracin-po lymyxin B (POLYSPORIN) ointmentIndic ations:Minor Bacterial Skin Infections Apply 1 Application topically daily 15 g 10/28/19 25 Discontinued( erapy completed) senna-docusat e (PERICOLACE) 8.6-50 mg Take 1 tablet by mouth 2 (two) times a day 30 tablet 10/28/19 025 Discontinued( erapy completed) methocarbamoL (ROBAXIN) 500 mg tablet Take 1 tablet (500 mg total) by mouth 3 (three) times a day as needed for muscle spasms 45 tablet 10/28/19 Discontinued( erapy completed) levETIRAcetam (KEPPRA) 500 mg tablet Take 1 tablet (500 mg total) by mouth 2 (two) times a day for 5 doses 5 tablet 10/28/19 025 Discontinued( erapy completed) losartan (COZAAR) 25 mg tablet Take 1 tablet (25 mg total) by mouth daily 30 tablet 1 10/29/19 Discontinued oxyCODONE (ROXICODONE) 5 mg immediate release tabletIndicat ions:Pain Take 1 tablet (5 mg total) by mouth every 6 (six) hours as needed for pain 24 tablet 10/28/19 25 025 Discontinued( erapy completed) melatonin 5 mg tablet Take 1 tablet (5 mg total) by mouth nightly as needed (sleep) 10 tablet 10/28/19 025 Discontinued( erapy completed) omeprazole (PriLOSEC) 20 mg capsuleIndica tions:acid reflux Take 1 capsule (20 mg total) by mouth every morning Discontinued( erapy completed) cyclobenzapri ne (FLEXERIL) 10 mg tabletIndicat ions:Fracture , metacarpal Take 0.5 tablets (5 mg total) by mouth 3 (three) times a day as needed for muscle spasms 30 tablet 1 10/31/19 25 025 Discontinued( erapy completed) Active Problems Problem Noted Date Diagnosed Date Muscle weakness of right upper extremity 025 Fracture, metacarpal 10/28/2024 Discharge planning issues 10/27/2024 Assessment & Plan (10/27/2024 1:52 PM CDT): - CM initial assessment complete - PT/OT worked with patient, cleared for d/c home - Patient is medically stable for discharge, SW/CM updated. Discharge pending nothing, patient discharging home Acute pain due to trauma 10/27/2024 Assessment & Plan (10/27/2024 1:51 PM CDT): - Tylenol scheduled - Robaxin PRN - Oxycodone PRN Closed boxer's fracture 10/24/2024 Assessment & Plan (10/27/2024 1:50 PM CDT): #R Boxer's fracture - Plastic Surgery Hand c/s: - Splinted in ED - Possible OR intervention as an outpatient, no intervention during this admission - NWB to arm - pain control - PT/OT Difficulty sleeping 10/24/2024 Encounter for medication review 10/24/2024 Assessment & Plan (10/24/2024 10:20 AM CDT): Medications Name Sig clonidine HCl 0.1 mg tablet TAKE 1 TABLET BY MOUTH EVERY 12 HOURS FOR 1 MONTH citalopram 10 mg tablet Take 1 tablet by mouth once daily ondansetron HCl 4 mg tablet TAKE 1 TABLET BY MOUTH EVERY 8 HOURS thiamine HCl (vitamin B1) 100 mg tablet TAKE 1 TABLET BY MOUTH IN THE MORNING FOR 1 MONTH metronidazole 500 mg tablet TAKE 1 TABLET BY MOUTH THREE TIMES DAILY carvedilol 3.125 mg tablet Take 1 tablet twice a day by oral route for 30 days. ondansetron 8 mg disintegrating tablet DISSOLVE 1 TABLET IN MOUTH EVERY 8 HOURS citalopram 20 mg tablet TAKE 1 TABLET BY MOUTH ONCE DAILY famotidine 20 mg tablet TAKE 1 TABLET BY MOUTH EVERY 12 HOURS magnesium oxide 400 mg (241.3 mg magnesium) tablet chlordiazepoxide 25 mg capsule TAKE 2 TABLETS EVERY 6-12 HOURS NEEDED ON DAY 1, THEN 1 TAB EVERY 6 HOURS NEEDED ON DAYS 2-5 cimetidine 200 mg tablet TAKE 1 TABLET BY MOUTH TWICE DAILY NEEDED amlodipine 10 mg tablet TAKE 1 TABLET BY MOUTH ONCE DAILY trazodone 150 mg tablet TAKE 1 TABLET BY MOUTH ONCE DAILY AT BEDTIME omeprazole 20 mg capsule,delayed release TAKE 1 CAPSULE BY MOUTH ONCE DAILY FOR 30 DAYS chlordiazepoxide 10 mg capsule TAKE 1 CAPSULE BY MOUTH THREE TIMES DAILY NEEDED folic acid 1 mg tablet TAKE 1 TABLET BY MOUTH ONCE DAILY FOR 1 MONTH gabapentin 100 mg capsule TAKE 1 CAPSULE BY MOUTH THREE TIMES DAILY NEEDED FOR ALCOHOL WITHDRAWAL ondansetron 4 mg disintegrating tablet DISSOLVE 1 TABLET IN MOUTH EVERY 8 HOURS NEEDED FOR NAUSEA AND VOMITING cefdinir 300 mg capsule TAKE 1 CAPSULE BY MOUTH TWICE DAILY losartan 100 mg tablet TAKE 1 TABLET BY MOUTH ONCE DAILY fluticasone propionate 50 mcg/actuation nasal spray,suspension USE 1 SPRAY(S) IN EACH NOSTRIL ONCE DAILY dicyclomine 10 mg capsule TAKE 2 CAPSULES BY MOUTH THREE TIMES DAILY hydroxyzine pamoate 25 mg capsule TAKE 1 TO 2 CAPSULES BY MOUTH THREE TIMES DAILY NEEDED cyclobenzaprine 5 mg tablet TAKE 1 TABLET BY MOUTH THREE TIMES DAILY NEEDED 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/23/2024 Assessment & Plan (10/24/2024 10:00 AM CDT): R frontotemporal, L frontal contusion Neurosurgery consult Nsgy to F/u read of MRI/MRA Keppra 500mg BID x7 days Maintain SBP < 160 Neuro check frequency: Q4h Medical DVT prophylaxis: ok to start today Brace needed: n/a Follow-up: TBD Lung mass 10/04/2023 Pneumonia 10/04/2023 Rib pain 10/04/2023 Hypertensive disorder 04/25/2023 Insomnia 04/25/2023 Hyperlipidemia 01/24/2022 Prediabetes 01/24/2022 Elevation of levels of liver transaminase levels 01/24/2022 Anxiety 08/29/2019 Acid reflux 08/29/2019 Encounters Date Type Department Care Team Description 03/30/2025 2:30 PM CDT [facility] [address] [place] [address] Health 4[address] [place] [address] Nilesh Crump MD Chronic migraine with aura without status migrainosus, not intractable (Primary Dx); Insomnia due to medical condition; Anxiety disorder, unspecified type; Snoring; Hypertension, unspecified type; Obesity (BMI 35.0-39.9 without comorbidity) 03/10/2025 Telephone [facility] [address] [facility] Health 4th Floor [address] [place] [address] Anita Tyler Scheduling Appointments 02/10/2025 2:15 PM CDT Office Visit [facility] Medicine Surgery [address] [facility] [address] Medical Office Building [address] [place] [address] PA Closed boxer's fracture with routine healing, subsequent encounter (Primary Dx) from Last 3 Months Immunizations Immunization Administration Dates Next Due Tdap 10/23/2024(Deferred: Other - pt recieved dose prior),10/23/2024 Surgical History Surgery Date Site/Laterality Comments LEG SURGERY 06/11/1985 - 06/10/1986 Right plastic surgery CYST REMOVAL 06/11/1987 - 06/10/1988 lip Family History Medical History Relation Name Comments Anesthesia problems Neg Hx Social History Tobacco Use Types Packs/Day Years Used Date Smoking Tobacco: Former Cigarettes 1 9 1 996 - 2005 Vaping Smokeless Tobacco: Never Tobacco Cessation:Counseling Given: Not Answered Comments: AUDIT-C Answer Date Recorded Q1: How often do you have a drink containing alcohol? Monthly or less 03/30/2025 Q2: How many drinks containi ng alcohol do you have on a typical day when you are drinking? Patient does not drink Q3: How often do you have si x or more drinks on one occasion? Never 03/30/2025 Hunger Vital Sign Answer Date Recorded Within the past 12 months, y ou worried that your food would run out before you got the money to buy more. Sometimes true Within the past 12 months, t he food you bought just didn't last and you didn't have money to get more. Never true Personal Safety Answer Date Recorded Have you ever been in or are you currently in a harmful physical or emotional relationship or is someone making you feel afraid or unsafe? 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 denies blurry vision, denies dizziness. took BP meds this morning and tylenol. Pulse 83 03/30/2025 1:54 PM CDT Temperature 36.4 C (97.6 F) 03/30/2025 1:54 PM CDT Respiratory Rate 16 10/27/2024 11:5 7 AM CDT Oxygen Saturation 95% 03/30/2025 1:5 4 PM CDT Inhaled Oxygen Concentration - - Weight 113.4 kg (250 lb) 03/30/2025 1:5 4 PM CDT Height 177.8 cm (5' 10) 03/30/2025 1:5 4 PM CDT Body Mass Index 35.87 03/30/2025 1:54 PM CDT Plan of Treatment Health Maintenance Due Date Last Done Comments Colon Cancer Screening-Colonoscopy 1975 Depression Screening 1975 Hepatitis C Screening 1975 Hepatitis B Screening 1993 Regular Well Visit/Exam 18-64 1993 Influenza Vaccine (#1) 2025 DTaP/Tdap/Td Vaccine (2 - Td or Tdap) 10/23/2034 10/23/2024 Pneumococcal vaccine <65 Aged Out No longer eligible based on patient's age to complete this topic Insurance [facility] Advance Directives For more information, please contact: [phone] * Full Code (Latest Code Status on File) Date Activated Date Inactivated Comments 10/23/2024 3:10 PM 10/27/2024 10:07 PM Care Teams Marketing Operations Coordinator Relationship Specialty Start Date End Date No, Physician PCP - General 11/17/24
[2025-04-22 14:21] VITALS: BP 157/97; PULSE 110; RESP 16; O2SAT 99
[2025-04-22] MEDS: KETOROLAC 15 MG/ML VIAL (*BKC) IV PUSH (14:47)
[2025-04-22] MEDS: FAMOTIDINE 20 MG/2 ML VIAL IV PUSH (14:47)
[2025-04-22 15:54] VITALS: BP 143/78; PULSE 103; RESP 20; O2SAT 97
== END 2025-04-22 15:56 | disposition home or self-care (01) ==
PROVIDERS: Emergency Provider Emergency Medicine; PCP Nurse Practitioner Family
DX: K52.9 Noninfective gastroenteritis and colitis, unspecified (principal); F10.10 Alcohol abuse, uncomplicated; Y90.2 Blood alcohol level of 40-59 mg/100 ml; I10 Essential (primary) hypertension; E78.5 Hyperlipidemia, unspecified; R73.03 Prediabetes; K21.9 Gastro-esophageal reflux disease without esophagitis; Z87.442 Personal history of urinary calculi
CPT/HCPCS: 36415; 80053; 81001; 82077; 83690; 85025; 93005; 96361; 96374; 96375; 99284; J1885; J2405; J7030